=== PATIENT | male | born 1975 ===

== ENCOUNTER 2022-02-19 13:14 | Emergency (ER) | payer OTHER, SELFPAY ==
--- NOTE | ~2022-02-19 | CT_ITS ---
EXAMINATION: CT BRAIN AND CT FACIAL BONES WITHOUT CONTRAST. CLINICAL INFORMATION: Head injury at work with LOC. COMPARISON: None TECHNIQUE: 5 mm thin axial and reformatted 2 mm thin sagittal and coronal images of brain were obtained without contrast. Subsequently axial 3 mm thin and reformatted 2 mm thin sagittal and coronal images of facial bones were obtained. DLP [id number]. FINDINGS: Brain: There is no acute intra-axial, extra-axial bleed, masses or midline shift. There is no acute infarct in evolution. The lateral ventricles are symmetrical in size and configuration without enlargement. The modi to white matter difference is maintained. There is no acute infarct in evolution. Bone windows reveal no calvarial abnormality. There is no scalp soft tissue abnormality. There is mild mucoperiosteal thickening bilateral maxillary, ethmoid, frontal and sphenoid sinuses. Facial bones: There is no maxillofacial or mandibular fracture. The bony sinus martinez, lamina papyracea and the cribriform plate is intact. There is bilateral nasal bone fractures with mild displacement of the right nasal bone. However there is no's soft tissue swelling. Question acute versus old fractures. The nasal pharyngeal and nasal cavity airway is patent. There is mild deviation nasal septum to the left with symmetrical turbinates. The bony orbits, optic globe, optic nerve and the periorbital soft tissues are normal. Bilateral TM joints are symmetric and normal. The oropharynx and the nasopharynx is unremarkable. Visualized bilateral parotid, submandibular glands are symmetrical and normal. CT/CT facial bones wo con IMPRESSION: No acute intracranial process seen. Bilateral nasal bone fractures. No associated soft tissue swelling. Versus old. Correlate with clinical exam. Chronic pansinusitis with deviated nasal septum to the left.
[2022-02-19 14:06] VITALS: BP 142/88; PULSE 70; RESP 18; TEMP 36.4; O2SAT 98; BMI 32.7
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
[2022-02-19] MEDS: Acetaminophen 325 MG TABLET 650 MG PO (15:09)
== END 2022-02-19 16:42 | disposition home or self-care (01) ==
PROVIDERS: Emergency Provider Emergency Medicine; PCP Hospitalist
DX: S02.2XXA Fracture of nasal bones, initial encounter for closed fracture (principal); S09.90XA Unspecified injury of head, initial encounter; Y04.8XXA Assault by other bodily force, initial encounter; Y93.9 Activity, unspecified; Y92.9 Unspecified place or not applicable; Y99.0 Civilian activity done for income or pay; Z79.899 Other long term (current) drug therapy
CPT/HCPCS: 70450; 70486; 99284

== ENCOUNTER → 2023-07-04 09:45 | Outpatient (BNVA) | payer OTHER, SELFPAY | PROVIDERS: PCP Hospitalist; Visit Provider Physician Assistant Medical | DX: M54.50 Low back pain, unspecified (principal) | CPT/HCPCS: 99203 ==

== ENCOUNTER → 2023-07-15 11:13 | Outpatient (BNVA) | payer OTHER, SELFPAY | PROVIDERS: PCP Hospitalist; Visit Provider Physician Assistant Medical | DX: M54.50 Low back pain, unspecified (principal) | CPT/HCPCS: 99213 ==

== ENCOUNTER 2024-09-04 02:01 | Day surgery (SDC) | payer OTHER, SELFPAY ==
[2024-09-04] VITALS (10 sets, daily range): BP systolic 122–184; BP diastolic 66–97; PULSE 77–97; RESP 14–18; TEMP 36.4–37.3; O2SAT 2–99; BMI 32.1
--- NOTE | ~2024-09-04 | CT_ITS ---
EXAMINATION: CT ABDOMEN AND PELVIS WITH CONTRAST CLINICAL INFORMATION: Right lower quadrant pain. COMPARISON: None available. TECHNIQUE: Multidetector volumetric images were obtained from the superior aspect of the liver through the pubic symphysis following administration 85 mL of Omnipaque 350 intravenous contrast. Sagittal and coronal reformatted images were obtained on the technologist's workstation. Oral contrast: No This CT examination was performed using dose optimization techniques as appropriate, variously including the following: *Automated exposure control *Adjustment of mA and/or kV according to patient size (this includes techniques or standardized protocols for targeted exams where dose is matched to indication/reason for exam; i.e. extremities or head) *Use of iterative reconstruction technique DLP: 817 mGy-cm FINDINGS: LUNG BASES: The visualized lung bases are unremarkable. LIVER, GALLBLADDER, AND BILIARY TREE: The liver is normal in size, shape, and attenuation. No focal hepatic lesion or biliary ductal dilatation is present. The gallbladder is unremarkable with no evidence of radiopaque gallstones, gallbladder wall thickening, or obvious pericholecystic inflammatory changes. PANCREAS: Unremarkable. SPLEEN: Unremarkable. ADRENAL GLANDS: Unremarkable. KIDNEYS AND URETERS: The kidneys are normal in size, shape, and attenuation. No hydronephrosis, hydroureter, or calculi seen. No perinephric stranding. BLADDER: Unremarkable. GASTROINTESTINAL TRACT: The appendix is abnormally dilated to a maximum outer wall diameter of 15 mm. Reticulation of the mesoappendix fat is present. A rounded 6 mm density is present at the base of the appendix and may represent an appendicolith. Trace adjacent free peritoneal fluid which is likely reactive is noted adjacent to the appendix. No free intraperitoneal gas identified. Normal appearance of the sigmoid mesentery and small bowel mesentery. Normal appearance of the stomach and duodenum. ABDOMINAL WALL: No significant hernia is appreciated. LYMPH NODES: Normal. VASCULAR: Mild scattered calcific atherosclerosis. PELVIC VISCERA: Normal appearance of the prostate. OSSEOUS STRUCTURES: No suspicious skeletal lesions. CT/CT abdomen pelvis w IV con IMPRESSION: Acute uncomplicated appendicitis. The appendix is abnormally dilated to 15 mm in diameter. Moderate adjacent periappendiceal inflammatory changes are present. No evidence of appendiceal perforation. A 6 mm appendicolith is present at the base of the appendix. Normal appearance of the terminal ileum. This critical result was discussed with Rosie Khan MD by telephone at 09/04/2024 4:09 AM EDT and it was ascertained that the content and urgency of the report was understood at the time of direct communication. Electronically signed by: Jorge Lewis MD 09/04/2024 04:10 AM EDT
[2024-09-04 02:18] LABS: MANUAL DIFF FLAG NO
[2024-09-04 02:20] LABS: Basophils Percent Auto 0.4 % (0-2); Eosinophils Absolute Auto 0.3 X10*3/uL (0.0-0.4); Eosinophils Percent Auto 2.6 % (0-4); Hematocrit 43.8 % (42.0-52.0); Hemoglobin 15.1 g/dl (14.0-18.0); Imm Gran Abs Auto 0.03 X10*3/uL (0.00-0.03); Imm Gran Pct Auto 0.3 % (0.0-0.4); Lymphocytes Absolute Auto 1.9 X10*3/uL (1.2-4.9); Lymphocytes Percent Auto 17.8 % (20-40); Mean Corpuscular HGB Conc 34.5 g/dl (31.0-36.0); Mean Corpuscular Hemoglobin 30.5 pg (27.0-33.0); Mean Corpuscular Volume 88.5 fL (80.0-98.0); Mean Platelet Volume 9.6 fL (9.4-12.4); Neutrophils Absolute Auto 7.6 x10*3/uL (2.0-8.3); Neutrophils Percent Auto 69.9 % (45-73); Platelet Count 177 X10*3/uL (160-400); Red Blood Count 4.95 X10*6/uL (4.60-5.80); Red Cell Distribution Width 12.6 % (11.0-16.0); White Blood Count 10.8 X10*3/uL (4.8-10.8)
[2024-09-04 02:32] LABS: Alanine Aminotransferase 38 U/L (0-40); Albumin Level 4.4 g/dL (3.5-5.0); Alkaline Phosphatase 56 U/L (39-117); Anion Gap 13 (12-20); Aspartate Amino Transferase 34 U/L (5-37); Bilirubin Total 0.4 mg/dL (0.0-1.0); Blood Urea Nitrogen 11 mg/dL (9-16); Calcium 9.4 mg/dL (8.4-10.2); Carbon Dioxide 25 mmol/L (22-29); Chloride 107 mmol/L (96-108); Creatinine Clr Calc Pharmacy 89.3; Estimated Glomerular Filt Rate 58; Glucose Random 113 mg/dL (60-115); Lipase 18 U/L (8-78); Potassium 3.9 mmol/L (3.3-5.1); Sodium 141 mmol/L (135-145); Total Protein 7.5 g/dL (6.5-8.0)
--- OUTSIDE RECORDS SUMMARY | 2024-09-04 02:55 | XMS_ITS | Continuity of Care Document ---
Author Organization [facility] Kenneth Shad Address [address] [place] [address]- Care Team Providers Care Driver License Agent Name Role Phone Fadia Tay Primary Care Physician [phone] [place] [facility] [place] 10[place]/23 [facility] Adult [address] [place] [address]- Attending Physician: Fadia Tay Allergies, Adverse Reactions, Alerts No Known Allergies Immunizations Given and Recorded Vaccine Date Status Refusal Reason SARS-CoV-2 (COVID-19) mRNA BNT-162b2 vac 11/11/21 Recorded SARS-CoV-2 (COVID-19) mRNA BNT-162b2 vac 12/03/20 Recorded SARS-CoV-2 (COVID-19) mRNA BNT-162b2 vac 11/12/20 Recorded influenza virus vaccine, inactivated 1 09/07/14 Gi shagufta influenza virus vaccine, inactivated 2 12/03/13 Gi shagufta FluLaval (oldterm) 3 10/22/11 Given Tet/diphth/pertussis, acel (oldterm) 4 10/22/11 Gi shagufta 1Admin Note: Work 2Admin Note: 08-19 WORK 3Admin Note: - AT WORK 4Admin Note: 2009 AT WORK CONNECTION Medications esomeprazole 20 mg oral powder for reconstitution, delayed release 1 each = 20 mg, By Mouth, Daily, dissolve in water before taking, # 30 each, 5 Refills, Maintenance, 05/04/22 15:04:00 EDT, Powder, [id number], Partial fill upon patient request if the prescription is for a schedule II opioid drug., 185.42, cm... Start Date: 05/04/22 Status: Ordered Paxlovid 150 mg-100 mg oral tablet See Instructions, follow package instructions, # 30 tablet, 0 Refills, Maintenance, 09/15/22 13:02:00 EST, [id number], not renally impaired, follow package instructions, 185.42, cm, 05/04/22 14:36:00 EDT, Height, 113.3, kg, 03/19/21 10:56:00 E... Start Date: 09/15/22 Status: Ordered Problem List Condition Confirmation Course Effective Dates Status Health St atus Informant Allergic rhinitis Confirmed Active Arthritis of knee - right Confirmed Active Esophageal reflux (GERD) Confirmed 04/13/11 Active Nasal bone fracture Confirmed Active Obese class I Confirmed Active Plantar fasciitis of right foot Confirmed Active Social History Social History Type Response Smoking Status Former smoker; Other : quit 8 years ago; entered on: 03/01/16 Sex Patient Care team information Care Team Personnel Name: Fadia Tay Position: [facility] PCO Associate Professional Member Role: PCP Address: Address: [address] [place] [id number] Care Team Related Persons Name: ИРИНА OSBORNE Address: home [address] [address] Name: NIRU OSBORNE Address: home [address] [place] [address]
--- OUTSIDE RECORDS SUMMARY | 2024-09-04 02:55 | XMS_ITS | Continuity of Care Document ---
Author Organization [facility] Shad lt Address [address] [place] [address]- Care Team Providers Care Retail Leasing Agent Name Role Phone Dione PERDOMO, Poli Lewis Primary Care Physician [phone] [place] [facility] [place]/12/21 - 01/19/21 [facility] Adult [address] [place] [address]- Attending Physician: Domeinco Nicole MD Allergies, Adverse Reactions, Alerts Substance Reaction Severity Status NKA Active Immunizations Given and Recorded Vaccine Date Status Refusal Reason influenza virus vaccine, inactivated 1 09/07/14 Gi shagufta influenza virus vaccine, inactivated 2 12/03/13 Gi shagufta FluLaval (oldterm) 3 10/22/11 Given Tet/diphth/pertussis, acel (oldterm) 4 10/22/11 Gi shagufta 1Admin Note: Work 2Admin Note: 08-19 WORK 3Admin Note: 07-18 AT WORK 4Admin Note: 2008 AT WORK CONNECTION Medications NexIUM 24HR 20 mg oral delayed release capsule 1 capsule = 20 mg, By Mouth, 2 times a day, 30 min before a meal, # 60 capsule, 11 Refills, Maintenance, 07/03/20 10:57:00 EDT, [id number], brand name nexium 24 hr as per insurance, 185.7, cm, 07/03/20 10:10:00 EDT, Height Start Date: 07/03/20 Status: Ordered NuLYTELY with Flavor Packs oral powder for reconstitution 240 mL, By Mouth, Every 10 minutes, # 4,000 mL, 0 Refills, Maintenance, 07/03/20 10:56:00 EDT, REC Powder, [id number], 240 mL By Mouth Every 10 minutes, 185.7, cm, 07/03/20 10:10:00 EDT, Height Start Date: 07/03/20 Status: Ordered omeprazole 40 mg oral enteric coated capsule 1 capsule = 40 mg, By Mouth, 2 times a day, before a meal, # 60 capsule, 11 Refills, Maintenance, 04/17/20 10:13:00 EDT, EC Capsule, [facility]/pharmacy #[id number], 185.7, cm, 04/16/20 16:28:00 EDT, Height Start Date: 04/17/20 Status: Ordered Pepcid Complete By Mouth, Every 12 hours, 0 Refills, Maintenance, 01/14/21 11:13:00 EST, Partial fill upon patient request if the prescription is for a schedule II opioid drug. Start Date: 01/14/21 Status: Ordered Problem List Condition Effective Dates Status Health Status Inform ant Allergic rhinitis(Confirmed) Active Arthritis of knee - right(Confirmed) Active Esophageal reflux (GERD)(Confirmed) 04/13/11 Active Pain of right arm(Confirmed) Active Plantar fasciitis of right foot(Confirmed) Active Vital Signs Most recent to oldest [Reference Range]: 1 Height 185.7 cm (01/12/21 12:13 PM) Weight 108.9 kg (01/12/21 12:13 PM) Body Mass Index [18.5-24.99] 31.58 *>HHI* (01/12/21 12:13 PM) Weight Obtained Via Standing scale (01/12/21 12:13 PM) Social History Social History Type Response Smoking Status Former smoker; Other : quit 8 years ago; entered on: 03/01/16 Sex
--- OUTSIDE RECORDS SUMMARY | 2024-09-04 02:55 | XMS_ITS | Continuity of Care Document ---
Author Organization [facility] Shad lt Address [address] [place] [address]- Care Team Providers Care Counter Pocket Sewer Name Role Phone Poli Parham MD Primary Care Physician [phone] Encounter [facility] Date(s): 01/16/21 - 02/15/21 [facility] Adult [address] [place] [address]- Allergies, Adverse Reactions, Alerts Substance Reaction Severity [...] 4Admin Note: 2009 AT WORK CONNECTION Medications fluticasone 50 mcg/inh nasal spray 1 sprays, Nares, Both, Daily, # 1 each, 3 Refills, Maintenance, 02/10/21 14:03:00 EDT, [id number], 1 sprays Nares, Both Daily, 185.7, cm, 01/14/21 11:11:00 EST, Height Start Date: 02/10/21 Status: Ordered NexIUM 24HR 20 mg oral delayed release [...] Refills, Maintenance, 07/03/20 10:56:00 EDT, REC Powder, [facility]/pharmacy #[id number], 240 mL By Mouth Every 10 [...] Active Plantar fasciitis of right foot(Confirmed) Active Social History Social History Type Response Smoking Status Former smoker; Other : quit 8 years ago; entered on: 03/01/16 Sex
--- OUTSIDE RECORDS SUMMARY | 2024-09-04 02:55 | XMS_ITS | Continuity of Care Document ---
Author Organization [facility] Kenneth Shad lt Address [address] [place] [address]- Care Team Providers Care Split And Drum Room Supervisor Name Role Phone Fadia Tay Primary Care Physician [phone] En[place] [facility] [place] Date(s): 02/01/24 - 02/08/24 [facility] Adult [address] [place] [address]- Encounter Diagnosis URI (upper respiratory infection)(Discharge Diagnosis) - 02/01/24 Attending Physician: Domenico Nicole MD Referring Physician: Fadia Tay Allergies, Adverse Reactions, Alerts [...] 4Admin Note: 2008 AT WORK CONNECTION Medications esomeprazole 20 mg oral powder for reconstitution, delayed release 1 each = 20 mg, By Mouth, Daily, dissolve in water before taking, # 30 each, 5 Refills, Maintenance, 05/04/22 15:04:00 EDT, Powder, [id number], Partial fill upon patient request if the prescription is for a schedule II opioid drug., 185.42, cm... Start Date: 05/04/22 Status: Ordered predniSONE 20 mg oral tablet 2 tablet = 40 mg, By Mouth, Daily, # 6 tablet, 0 Refills, Maintenance, 02/01/24 11:07:00 EDT, Tablet, [id number], Partial fill upon patient request if the prescription is for a schedule II opioid drug., 185.42, cm, 02/01/24 10:52:00 EDT, Height Start Date: 02/01/24 Status: Ordered Problem List Condition Confirmation Course Effective Dates Status Health St atus Informant Allergic rhinitis Confirmed Active Arthritis of knee - right Confirmed Active Esophageal reflux (GERD) Confirmed 04/13/11 Active Nasal bone fracture Confirmed Active Obese class I Confirmed Active Plantar fasciitis of right foot Confirmed Active Diagnosis Diagnosis Type Effective Dates Health Status Clinical Service Informant URI (upper respiratory infection) Discharge Diagnosis 02/01/24 Vital Signs Most recent to oldest [Reference Range]: 1 Height 185.42 cm (02/01/24 10:52 AM) Weight 114.3 kg (02/01/24 10:52 AM) Oxygen Saturation [94-100 %] 96 % (02/01/24 10:52 AM) Pulse Rate [55-90 bpm] 97 bpm *H* (02/01/24 10:52 AM) Body Mass Index [18.5-24.99 kg/m2] 33.25 kg/m2 *>HHI* (02/01/24 10:52 AM) Blood Pressure [90-138/55-84 mm Hg] 123/ 87mm Hg (02/01/24 10:52 AM) Mode of Delivery (Oxygen) Room air (02/01/24 10:52 AM) Blood pressure sites Arm, left (02/01/24 10:52 AM) Weight Obtained Via Standing scale (02/01/24 10:52 AM) Social History Social History Type Response Smoking Status Former smoker; Other : quit 8 years ago; entered on: 03/01/16 Sex Patient Care team information Care Team Personnel Name: Fadia Tay Position: S PCO Associate Professional Member Role: PCP Address: Address: [address] [place] [id number] Care Team Related Persons Name: ИРИНА OSBORNE Address: home [address] [place] [address] Name: NIRU OSBORNE Address: home [address] [place] [address]
--- OUTSIDE RECORDS SUMMARY | 2024-09-04 02:55 | XMS_ITS | Continuity of Care Document ---
Author Organization [facility] Kenneth Shad Address [address] [place] [address]- Care Team Providers Care Road Tester Name Role Phone Fadia Tay Primary Care Physician [phone] [place] [facility] [place] 05[place]/22 [facility] Adult [address] [place] [address]- Allergies, Adverse Reactions, Alerts No Known Allergies [...] 4Admin Note: 2009 AT WORK CONNECTION Medications acetaminophen-codeine 300 mg-30 mg oral tablet 1, tablet, By Mouth, Every 6 hours, # 15 tablet, Refills 0, Tot. Refills 0, Acute, 03/11/23 14:00:00 EDT, 03/04/22 13:37:00 EDT, Route to Pharmacy Electronically, [facility]/pharmacy #[id number], Partial fill upon patient request if the prescription is for a sched... Start Date: 03/04/22 Stop Date: 03/11/23 Status: Ordered esomeprazole 20 mg oral powder for reconstitution, delayed release 1 each = 20 mg, By Mouth, Daily, dissolve in water before taking, # 30 each, 5 Refills, Maintenance, 05/04/22 15:04:00 EDT, Powder, [facility]/pharmacy #[id number], Partial fill upon patient request if the prescription is for a schedule II opioid drug., 185.42, cm... Start Date: 05/04/22 Status: Ordered fluticasone 50 mcg/inh nasal spray See Instructions, USE 1 SPRAY IN BOTH NOSTRILS ONCE DAILY, # 48 mL, 0 Refills, Maintenance, [id number], 90, USE 1 SPRAY IN BOTH NOSTRILS ONCE DAILY, 185.42, cm, 03/19/21 10:56:00 EDT, Height, 113.3, kg, 03/19/21 10:56:00 EDT, Dry Weight Start Date: 05/04/21 Status: Ordered omeprazole 40 mg oral enteric coated capsule 1 capsule = 40 mg, By Mouth, 2 times a day, before a meal, # 60 capsule, 11 Refills, Maintenance, 04/17/20 10:13:00 EDT, EC Capsule, [facility]/pharmacy #[id number], 185.7, cm, 04/16/20 16:28:00 EDT, Height Start Date: 04/17/20 Status: Ordered Pepcid Complete By Mouth, Every 12 hours, 0 Refills, Maintenance, 01/14/21 11:13:00 EST, Partial fill upon patient request if the prescription is for a schedule II opioid drug. Start Date: 01/14/21 Status: Ordered ZyrTEC 10 mg oral tablet 1 tablet = 10 mg, By Mouth, Daily, 0 Refills, Maintenance, 03/19/21 10:54:00 EDT, Partial fill uponpatient request if the prescription is for a schedule II opioid drug. Start Date: 03/19/21 Status: Ordered Problem List Condition Effective Dates Status Health Status Inform ant Allergic rhinitis(Confirmed) Active Arthritis of knee - right(Confirmed) Active Esophageal reflux (GERD)(Confirmed) 04/13/11 Active Nasal bone fracture(Confirmed) Active Obese class I(Confirmed) Active Pain of right arm(Confirmed) Active Plantar fasciitis of right foot(Confirmed) Active Social History Social History Type Response Smoking Status Former smoker; Other : quit 8 years ago; entered on: 03/01/16 Sex
--- OUTSIDE RECORDS SUMMARY | 2024-09-04 02:55 | XMS_ITS | Continuity of Care Document ---
Author Organization [facility] Address [address] [place] [address]- Care Team Providers Care Filler Machine Operator Name Role Phone Poli Parham MD Primary Care Physician Encounter [facility] [place] Date(s): 06/30/20 - 08/28/20 [facility] [address] [place] [address] Attending Physician: Sally Cline Admitting Physician: Sally Cline Referring Physician: Poli Parham MD Allergies, Adverse Reactions, Alerts Substance Reaction Severity Status NKA Active Immunizations Given and Recorded Vaccine Date Status Refusal Reason influenza virus vaccine, inactivated 1 09/07/14 Gi shagufta influenza virus vaccine, inactivated 2 12/03/13 Gi shagufta FluLaval (oldterm) 3 10/22/11 Given Tet/diphth/pertussis, acel (oldterm) 4 10/22/11 Gi shagufta 1Admin Note: Work 2Admin Note: 08-19 WORK 3Admin Note: 07-18 AT WORK 4Admin Note: 2009 AT WORK CONNECTION Medications arginine 500 mg oral capsule 1 capsule = 500 mg, By Mouth, 2 times a day, # 100 capsule, 0 Refills, Maintenance, 06/23/20 10:16:00 EDT, Capsule Start Date: 06/23/20 Status: Ordered Collagen 0 Refills, Maintenance, 06/23/20 10:16:00 EDT Start Date: 06/23/20 Status: Ordered fluticasone 50 mcg/inh nasal spray 1 sprays, Nares, Both, Daily, # 1 each, 3 Refills, Maintenance, 03/09/18 15:26:34 EDT, 1 sprays Nares, Both Daily Start Date: 03/09/18 Status: Ordered NexIUM 24HR 20 mg oral [...] Refills, Maintenance, 04/17/20 10:13:00 EDT, EC Capsule, [id number], 185.7, cm, 04/16/20 16:28:00 EDT, Height Start Date: 04/17/20 Status: Ordered Problem List Condition Effective Dates [...]
--- OUTSIDE RECORDS SUMMARY | 2024-09-04 02:55 | XMS_ITS | Continuity of Care Document ---
Author Organization [facility] Kenneth Shad lt Address [address] [place] [address]- Care Team Providers Care Shaper Operator Name Role Phone Poli Parham MD Primary Care Physician [place] [facility] [place] 04/17/20 - 04/24/20 [facility] [place] [address] [place] [address]- [facility] Encounter Diagnosis Esophageal reflux (GERD)(Discharge Diagnosis) - 04/21/20 Neuropathic pain(Discharge Diagnosis) - 04/21/20 Attending Physician: Poli Parham MD Allergies, Adverse Reactions, [...] 4Admin Note: 2008 AT WORK CONNECTION Medications famotidine 40 mg oral tablet 1 tablet = 40 mg, By Mouth, Daily, # 30 tablet, 1 Refills, Maintenance, 11/23/19 10:53:00 EST, Tablet, [facility]/pharmacy #[id number], 185.7, cm, 10/30/19 11:15:00 EST, Height Start Date: 11/23/19 Status: Ordered fluticasone 50 mcg/inh nasal spray 1 sprays, Nares, Both, Daily, # 1 each, 3 Refills, Maintenance, 05/03/18 15:26:34 EDT, 1 sprays Nares, Both Daily Start Date: 03/09/18 Status: Ordered NexIUM OTC = 20 mg, By Mouth, Daily, 0 Refills, Maintenance, 10/30/19 11:20:00 EST Start Date: 10/30/19 Status: Ordered omeprazole 40 mg oral enteric coated capsule 1 capsule = 40 mg, By Mouth, 2 times a day, before a meal, # 60 capsule, 11 Refills, Maintenance, 04/17/20 10:13:00 EDT, EC Capsule, [facility]/pharmacy #[id number], 185.7, cm, 04/16/20 16:28:00 EDT, Height Start Date: 04/17/20 Status: Ordered Problem List Condition Effective Dates Status Health Status Inform ant Allergic rhinitis(Confirmed) Active Arthritis of knee - right(Confirmed) Active Esophageal reflux (GERD)(Confirmed) 04/13/11 Active Pain of right arm(Confirmed) Active Plantar fasciitis of right foot(Confirmed) Active Diagnosis Diagnosis Type Effective Dates Health Status Clinical Service Informant Esophageal reflux (GERD) Discharge Diagnosis 04/21/20 Neuropathic pain Discharge Diagnosis 04/21/20 Vital Signs Most recent to oldest [Reference Range]: 1 Height 185.7 cm (04/16/20 4:28 PM) Social History Social History Type Response Smoking Status Former smoker; Other : quit 8 years ago; entered on: 03/01/16 Sex
--- OUTSIDE RECORDS SUMMARY | 2024-09-04 02:55 | XMS_ITS | Continuity of Care Document ---
Author Organization [facility] Address [address] [place] [address]- Care Team Providers Care Transmitter Chief Name Role Phone Fadia Tay Primary Care Physician Encounter [facility] [place] Date(s): 01/25/24 - 02/24/24 [facility] [address] [place] [address]- [place] Allergies, Adverse Reactions, Alerts No Known Allergies Immunizations Given and Recorded Vaccine Date Status Refusal Reason SARS-CoV-2 (COVID-19) mRNA BNT-162b2 vac 11/11/21 Recorded SARS-CoV-2 (COVID-19) mRNA BNT-162b2 vac 12/03/20 Recorded SARS-CoV-2 (COVID-19) mRNA BNT-162b2 vac 11/12/20 Recorded influenza virus vaccine, inactivated 1 09/07/14 Gi shagufta influenza virus vaccine, inactivated 2 12/03/13 Gi shaugfta FluLaval (oldterm) 3 10/22/11 Given Tet/diphth/pertussis, acel [...] Refills, Maintenance, 05/04/22 15:04:00 EDT, Powder, [id number], Partial fill upon patient request if the [...] Care Team Personnel Name: Fadia Tay Position: [facility] PCO Associate Professional Member Role: PCP Address: Address: [address] [place] [address]- Care Team Related Persons Name: ИРИНА OSBORNE Address: home [address] [place] [address] Name: NIRU OSBORNE Address: home [address] [place] [address]
--- OUTSIDE RECORDS SUMMARY | 2024-09-04 02:55 | XMS_ITS | Continuity of Care Document ---
Author Organization [facility] Shad lt Address [address] [place] [address]- Care Team Providers Care Material Control Analyst Name Role Phone Fadia Tay Primary Care Physician Encounter [facility] [place] Date(s): 02/03/24 - 03/04/24 [facility] [place] Adult [address] [place] [address]- Allergies, Adverse Reactions, Alerts No Known Allergies [...] 3Admin Note: - AT WORK 4Admin Note: 2008 AT WORK CONNECTION Medications esomeprazole 20 mg oral powder for reconstitution, delayed release 1 each = 20 mg, By Mouth, Daily, dissolve in water before taking, # 30 each, 5 Refills, Maintenance, 05/04/22 15:04:00 EDT, Powder, [id number], Partial fill upon patient request if the prescription is for a schedule II opioid drug., 185.42, cm... Start Date: 05/04/22 Status: Ordered predniSONE 20 mg oral tablet 2 tablet = 40 mg, By Mouth, Daily, # 6 tablet, 0 Refills, Maintenance, 02/01/24 11:07:00 EDT, Tablet, [facility]/pharmacy #[id number], Partial fill upon patient request if [...] Care Team Personnel Name: Fadia Tay Position: [facility] PCO Associate Professional Member Role: PCP Address: Address: [address] [place] [address]- Care Team Related Persons Name: ИРИНА OSBORNE Address: home [address] [address] Name: NIRU OSBORNE Address: home [address] [place] [address]
--- OUTSIDE RECORDS SUMMARY | 2024-09-04 02:55 | XMS_ITS | Continuity of Care Document ---
Author Organization [facility] Shad lt Address [address] [place] [address]- Care Team Providers Care Joint Filler Name Role Phone Fadia Tay Primary Care Physician Encounter [facility] [place] Date(s): 02/25/22 - 03/04/22 [facility] Adult [address] [place] [address]- Encounter Diagnosis Nasal bone fracture(Discharge Diagnosis) - 02/25/22 Concussion(Discharge Diagnosis) - 02/25/22 Attending Physician: Radha Kamara NP Referring Physician: Shoaib PERDOMO, Eros Loyola Allergies, Adverse Reactions, Alerts No Known Allergies [...] 4Admin Note: 2008 AT WORK CONNECTION Medications acetaminophen-codeine 300 mg-30 mg oral tablet 1, tablet, By Mouth, Every 6 hours, # 15 tablet, Refills 0, Tot. Refills 0, Acute, 03/11/23 14:00:00 EDT, 03/04/22 13:37:00 EDT, Route to Pharmacy Electronically, [facility]/pharmacy #[id number], Partial fill upon patient request if the prescription is for a sched... Start Date: 03/04/22 Stop Date: 03/11/23 Status: Ordered fluticasone 50 mcg/inh nasal spray See Instructions, USE 1 SPRAY IN BOTH NOSTRILS ONCE DAILY, # 48 mL, 0 Refills, Maintenance, [id number], 90, USE 1 SPRAY IN BOTH NOSTRILS ONCE DAILY, 185.42, cm, 03/19/21 10:56:00 EDT, Height, 113.3, kg, 03/19/21 10:56:00 EDT, Dry Weight Start Date: 05/04/21 Status: Ordered NexIUM 24HR 20 mg oral delayed release capsule 1 capsule = 20 mg, By Mouth, 2 times a day, 30 min before a meal, # 60 capsule, 11 Refills, Maintenance, 07/03/20 10:57:00 EDT, [facility]/pharmacy #[id number], brand name nexium 24 hr as per insurance, 185.7, cm, 07/03/20 10:10:00 EDT, Height Start Date: 07/03/20 Status: Ordered omeprazole 40 mg oral enteric coated capsule 1 capsule = 40 mg, By Mouth, 2 times a day, before a meal, # 60 capsule, 11 Refills, Maintenance, 04/17/20 10:13:00 EDT, EC Capsule, [facility]/pharmacy #[id number], 185.7, cm, 04/16/20 16:28:00 EDT, Height [...] Effective Dates Health Status Clinical Service Informant Nasal bone fracture Discharge Diagnosis 02/25/22 Concussion Discharge Diagnosis 02/25/22 Vital Signs Most recent to oldest [Reference Range]: 1 Height 185.42 cm (02/25/22 8:52 AM) Social History Social History Type Response Smoking Status Former smoker; Other : quit 8 years ago; entered on: 03/01/16 Sex
--- OUTSIDE RECORDS SUMMARY | 2024-09-04 02:55 | XMS_ITS | Continuity of Care Document ---
Author Organization [facility] Shad lt Address [address] [place] [address]- Care Team Providers Care Drain Cleaner Plumber Name Role Phone Poli Parham MD Primary Care Physician En[place] [facility] [place] Date(s): 01/14/21 - 02/13/21 [facility] Adult [address] [place] [address]- Attending Physician: Admtr, Ar8 Admitting Physician: Admtr, Ar8 Referring Physician: Admtr, Ar8 Allergies, Adverse Reactions, Alerts Substance Reaction Severity [...] 4Admin Note: 2008 AT WORK CONNECTION Medications fluticasone 50 mcg/inh [...] Refills, Maintenance, 07/03/20 10:56:00 EDT, REC Powder, [facility]/pharmacy #[id number], 240 mL By Mouth Every 10 minutes, 185.7, cm, 07/03/20 10:10:00 EDT, Height Start Date: 07/03/20 Status: Ordered omeprazole 40 mg oral enteric coated capsule 1 capsule = 40 mg, By Mouth, 2 times a day, before a meal, # 60 capsule, 11 Refills, Maintenance, 04/17/20 10:13:00 EDT, EC Capsule, [facility]/pharmacy #[id number], 185.7, cm, 04/16/20 16:28:00 EDT, Height [...]
--- OUTSIDE RECORDS SUMMARY | 2024-09-04 02:56 | XMS_ITS | Continuity of Care Document ---
Author Organization [facility] Shad lt Address [address] [place] [address]- Care Team Providers Care Associate Pathologist Name Role Phone Fadia Tay Primary Care Physician [phone] Encounter [facility] Date(s): 09/15/22 - 10/15/22 [facility] Adult [address] [place] [address]- Allergies, Adverse Reactions, Alerts No Known Allergies [...] Refills, Maintenance, 05/04/22 15:04:00 EDT, Powder, [id number], Partial fill upon patient request if the prescription is for a schedule II opioid drug., 185.42, cm... Start Date: 05/04/22 Status: Ordered Paxlovid 150 mg-100 mg oral tablet See Instructions, follow package instructions, # 30 tablet, 0 Refills, Maintenance, 09/15/22 13:02:00 EST, [facility]/pharmacy #[id number], not renally impaired, follow package [...] Care Team Personnel Name: Fadia Tay Position: [facility] PCO Associate Professional Member Role: PCP Address: Address: [address] [place] [id number] Care Team Related Persons Name: ИРИНА OSBORNE Address: home [address] [address] Name: NIRU OSBORNE Address: home [address] [place] [address]
--- OUTSIDE RECORDS SUMMARY | 2024-09-04 02:56 | XMS_ITS | Continuity of Care Document ---
Author Organization [facility] Shad lt Address [address] [place] [address]- Care Team Providers Care Green Belt Name Role Phone Poli Parham MD Primary Care Physician Encounter [facility] [place] Date(s): 02/10/21 - 03/12/21 [facility] Adult [address] [place] [address]- Allergies, Adverse Reactions, Alerts Substance Reaction Severity [...] Refills, Maintenance, 07/03/20 10:56:00 EDT, REC Powder, [facility]/pharmacy #[id number], 240 mL By Mouth Every 10 minutes, 185.7, cm, 07/03/20 10:10:00 EDT, Height Start Date: 07/03/20 Status: Ordered omeprazole 40 mg oral enteric coated capsule 1 capsule = 40 mg, By Mouth, 2 times a day, before a meal, # 60 capsule, 11 Refills, Maintenance, 04/17/20 10:13:00 EDT, EC Capsule, [facility]/pharmacy #[id number], 185.7, cm, 04/16/20 16:28:00 EDT, [...]
--- OUTSIDE RECORDS SUMMARY | 2024-09-04 02:56 | XMS_ITS | Continuity of Care Document ---
Author Organization [facility] Shad lt Address [address] [place] [address]- Care Team Providers Care Six Pack Loader Operator Name Role Phone Fadia Tay Primary Care Physician Encounter [id number] Date(s): 02/22/22 - 03/26/22 [facility] Adult [address] [place] [address]- Attending Physician: Fadia Tay Allergies, Adverse Reactions, [...] Gi shagufta 1Admin Note: Work 2Admin Note: - WORK 3Admin Note: -11 AT WORK 4Admin Note: 2008 AT WORK CONNECTION Medications acetaminophen-codeine 300 mg-30 mg oral tablet 1, tablet, By Mouth, Every 6 hours, # 15 tablet, Refills 0, Tot. Refills 0, Acute, 03/11/23 14:00:00 EDT, 03/04/22 13:37:00 EDT, Route to Pharmacy Electronically, [facility]/pharmacy #[id number], Partial fill upon patient request if the prescription is for a sched... Start Date: 03/04/22 Stop Date: 03/11/23 Status: Ordered fluticasone 50 mcg/inh nasal spray See Instructions, USE 1 SPRAY IN BOTH NOSTRILS ONCE DAILY, # 48 mL, 0 Refills, Maintenance, [facility]77[facility], 90, USE 1 SPRAY IN BOTH NOSTRILS ONCE DAILY, 185.42, cm, 03/19/21 10:56:00 EDT, Height, 113.3, kg, 03/19/21 10:56:00 EDT, Dry Weight Start Date: 05/04/21 Status: Ordered NexIUM 24HR 20 mg oral delayed release capsule 1 capsule = 20 mg, By Mouth, 2 times a day, 30 min before a meal, # 60 capsule, 11 Refills, Maintenance, 07/03/20 10:57:00 EDT, [facility]/pharmacy #[id number], brand name nexium 24 hr as per insurance, 185.7, cm, 07/03/20 10:10:00 EDT, Height Start Date: 07/03/20 Status: Ordered omeprazole 40 mg oral enteric coated capsule 1 capsule = 40 mg, By Mouth, 2 times a day, before a meal, # 60 capsule, 11 Refills, Maintenance, 04/17/20 10:13:00 EDT, EC Capsule, [facility]/pharmacy #[id number], 185.7, cm, 04/16/20 16:28:00 EDT, Height [...]
--- OUTSIDE RECORDS SUMMARY | 2024-09-04 02:56 | XMS_ITS | Continuity of Care Document ---
Author Organization [facility] Shad lt Address [address] [place] [address]- Care Team Providers Care Business Librarian Name Role Phone Fadia Tay Primary Care Physician Encounter [facility] Date(s): 09/15/22 - 10/15/22 [facility] Adult [address] [place] [address]- Attending Physician: Admtr, Ar8 Admitting Physician: Admtr, Pillo8 Referring Physician: Admtr, Ar8 Allergies, Adverse Reactions, Alerts No Known Allergies [...] Refills, Maintenance, 05/04/22 15:04:00 EDT, Powder, [id number], Partial fill upon patient request if the prescription is for a schedule II opioid drug., 185.42, cm... Start Date: 05/04/22 Status: Ordered Paxlovid 150 mg-100 mg oral tablet See Instructions, follow package instructions, # 30 tablet, 0 Refills, Maintenance, 09/15/22 13:02:00 EST, [id number], not renally impaired, follow package instructions, [...] Care Team Personnel Name: Fadia Tay Position: [facility] PCO Associate Professional Member Role: PCP Address: Address: [address] [place] [address]- Care Team Related Persons Name: ИРИНА OSBORNE Address: home [address] [address] Name: NIRU OSBORNE Address: home [address] [place] [address]
--- OUTSIDE RECORDS SUMMARY | 2024-09-04 02:56 | XMS_ITS | Continuity of Care Document ---
Author Organization [facility] Kenneth Shad lt Address [address] [place] [address]- Care Team Providers Care Thinner Sprayer Name Role Phone Poli Parham MD Primary Care Physician Encounter [facility] Date(s): 03/30/21 - 05/23/21 [facility] Adult [address] [place] [address]- Attending Physician: Poli Parham MD Allergies, Adverse Reactions, Alerts Substance Reaction Severity Status NKA Active Immunizations Given and Recorded Vaccine Date Status Refusal Reason SARS-CoV-2 (COVID-19) mRNA BNT-162b2 vac 12/03/20 Recorded [...] CONNECTION Medications fluticasone 50 mcg/inh nasal spray See Instructions, USE 1 SPRAY IN BOTH NOSTRILS ONCE DAILY, # 48 mL, 0 Refills, Maintenance, [facility], 90, USE 1 SPRAY IN BOTH NOSTRILS ONCE DAILY, 185.42, cm, 03/19/21 10:56:00 EDT, Height, 113.3, kg, 03/19/21 10:56:00 EDT, Dry Weight Start Date: 05/04/21 Status: Ordered NexIUM 24HR 20 mg oral delayed release capsule 1 capsule = 20 mg, By Mouth, 2 times a day, 30 min before a meal, # 60 capsule, 11 Refills, Maintenance, 07/03/20 10:57:00 EDT, [facility]/pharmacy #[id number], brand name nexium 24 hr as per insurance, 185.7, cm, 07/03/20 10:10:00 EDT, Height Start Date: 07/03/20 Status: Ordered omeprazole 40 mg oral enteric coated capsule 1 capsule = 40 mg, By Mouth, 2 times a day, before a meal, # 60 capsule, 11 Refills, Maintenance, 04/17/20 10:13:00 EDT, EC Capsule, [facility]/pharmacy #[id number], 185.7, cm, 04/16/20 16:28:00 EDT, [...]
--- OUTSIDE RECORDS SUMMARY | 2024-09-04 02:56 | XMS_ITS | Continuity of Care Document ---
Author Organization [facility] Gastroenter [facility] Address [address] [place] [address]- Care Team Providers Care Motor Inspection Mechanic Name Role Phone Fadia Tay Primary Care Physician Encounter [facility] [place] Date(s): 04/07/24 - 08/05/24 [facility] [address] [place] [address]- Attending Physician: Celeste Burleson MD Admitting Physician: Celeste Burleson MD Referring Physician: Celeste Burleson MD Allergies, Adverse Reactions, Alerts No Known Allergies [...] 4Admin Note: 2008 AT WORK CONNECTION Medications Centrum Adult MultiGummies Daily, 0 Refills, Maintenance, 07/17/24 10:28:00 EDT, Partial fill upon patient request if the prescription is for a schedule II opioid drug. Start Date: 07/17/24 Status: Ordered esomeprazole 20 mg oral powder [...] fluticasone 50 mcg/inh nasal spray See Instructions, SPRAY 1 SPRAY INTO BOTH NOSTRILS DAILY, SHAKE WELL BEFORE USING, # 48 mL, 1 Refills, Maintenance, 06/04/24 14:51:00 EDT, [facility], 90, SPRAY 1 SPRAY INTO BOTH NOSTRILS DAILY,SHAKE WELL BEFORE USING, 185.42, cm, 03/07/24 10:04... Start Date: 06/04/24 Status: Ordered [place] Essentials By Mouth, 2 times a day, 0 Refills, Maintenance, 07/17/24 10:28:00 EDT, Partial fill upon patient request if the prescription is for a schedule II opioid drug. Start Date: 07/17/24 Status: Ordered predniSONE 20 mg oral tablet [...] Care Team Personnel Name: Fadia Tay Position: [facility] PCO Associate Professional Member Role: PCP Address: Address: [address] [place] [address]- Care Team Related Persons Name: ИРИНА OSBORNE Address: home [address] [address] Name: NIRU OSBORNE Address: home [address] [place] [address]
--- OUTSIDE RECORDS SUMMARY | 2024-09-04 02:56 | XMS_ITS | Continuity of Care Document ---
Author Organization [facility] Shad Address [address] [place] [address]- Care Team Providers Care Bookkeeping Clerk Name Role Phone Fadia Tay Primary Care Physician Encounter [facility] [place] Date(s): 07/17/24 - 08/16/24 [facility] Adult [address] [place] [address]- Attending Physician: Mattie Davis Admitting Physician: AdmMattie bay Referring Physician: Admtr, Ar8 Allergies, Adverse Reactions, [...] Refills, Maintenance, 06/04/24 14:51:00 EDT, [facility], 90, SPRAY 1 SPRAY INTO BOTH NOSTRILS DAILY,SHAKE WELL BEFORE USING, 185.42, cm, 03/07/24 10:04... Start Date: 06/04/24 Status: Ordered [place] Essentials By Mouth, 2 times a day, [...] Care Team Personnel Name: Fadia Tay Position: [facility] PCO Associate Professional Member Role: PCP Address: Address: [address] [place] [address]- Care Team Related Persons Name: ИРИНА OSBORNE Address: home [address] [address] Name: NIRU OSBORNE Address: home [address] [place] [address]
--- OUTSIDE RECORDS SUMMARY | 2024-09-04 02:56 | XMS_ITS | Continuity of Care Document ---
Author Organization [facility] Kenneth Shad lt Address [address] [place] [address]- Care Team Providers Care Batch Analyst Name Role Phone Fadia Tay Primary Care Physician Encounter [facility] Date(s): 07/17/24 - 07/24/24 [facility], [place], operated by [facility] Adult [address] [place] [address]- Encounter Diagnosis Palpitations(Discharge Diagnosis) - 07/17/24 Shortness of breath(Discharge Diagnosis) - 07/17/24 Attending Physician: Fadia Tay Allergies, Adverse Reactions, [...] 5 Refills, Maintenance, 05/04/22 15:04:00 EDT, Powder, [facility]/pharmacy #[id number], Partial fill upon patient request if the prescription is for a schedule II opioid drug., 185.42, cm... Start Date: 05/04/22 Status: Ordered fluticasone 50 mcg/inh nasal spray See Instructions, SPRAY 1 SPRAY INTO BOTH NOSTRILS DAILY, SHAKE WELL BEFORE USING, # 48 mL, 1 Refills, Maintenance, 06/04/24 14:51:00 EDT, [id number], 90, SPRAY 1 SPRAY INTO BOTH NOSTRILS DAILY,SHAKE WELL BEFORE USING, 185.42, cm, 03/07/24 10:04... Start Date: 06/04/24 Status: Ordered Greer Essentials By Mouth, 2 times a day, 0 Refills, Maintenance, 07/17/24 10:28:00 EDT, Partial fill upon patient request if the prescription is for a schedule II opioid drug. Start Date: 07/17/24 Status: Ordered predniSONE 20 mg oral tablet 2 tablet = 40 mg, By Mouth, Daily, # 6 tablet, 0 Refills, Maintenance, 02/01/24 11:07:00 EDT, Tablet, [facility]/pharmacy #[id number], Partial fill upon patient request if [...] Effective Dates Health Status Clinical Service Informant Palpitations Discharge Diagnosis 07/17/24 Shortness of breath Discharge Diagnosis 07/17/24 Vital Signs Most recent to oldest [Reference Range]: 1 2 Height 185.42 cm (07/19/24 11:13 AM) 185.42 cm (07/17/24 10:24 AM) Weight 115.4 kg (07/19/24 11:13 AM) 115.4 kg (07/17/24 10:24 AM) Oxygen Saturation [94-100 %] 99 % (07/17/24 10:24 AM) Pulse Rate [55-90 bpm] 75 bpm (07/17/24 10:24 AM) Body Mass Index [18.5-24.99 kg/m2] 33.57 kg/m2 *>HHI* (07/17/24 10:24 AM) Blood Pressure [90-138/55-84 mm Hg] 118/ 71mm Hg (07/17/24 10:24 AM) Blood pressure sites Arm, right (07/17/24 10:24 AM) Weight Obtained Via Standing scale (07/17/24 10:24 AM) Social History Social History Type Response Smoking Status Former smoker; Other : quit 8 years ago; entered on: 03/01/16 Sex EKG study * Event Display: ECG 12-Lead Authored Date: Please click on pdf link to open report * Event Display: ECG 12-Lead Authored Date: Ventricular Rate: 77 BPM Atrial Rate: 77 BPM P-R Interval: 154 ms QRS Duration: 86 ms Q-T Interval: 388 ms QTC Calculation(Bazett): 439 ms P Warriormine: 27 degrees R Warriormine: 44 degrees T Warriormine: 38 degrees Normal sinus rhythm Normal ECG No previous ECGs available Confirmed by Harman Aguillon ([id number]) on 07/18/2024 7:11:31 AM [place]: Harman Aguillon Note * Bonnie Hawkins: PERFORM Event Display: Patient Education/Instruction Authored Date: Ambulatory Adult Visit Summary [facility] [place], [facility] Adult [facility] [address] [place] [address] Name: PIERRE OSBORNE : 1975?? Visit: 07/17/2024 10:19?? Ambulatory Visit Instructions ?? Your Care Team Primary Care Provider Fadia Tay? This Visit Provider Fadia Tay Your Diagnosis Palpitations Shortness of breath Vitals Signs Pulse Rate: 75 bpm Height: 185.42 cm Systolic Blood Pressure: 118 mm Hg Weight: 115.4 kg Diastolic Blood Pressure: 71 mm Hg Body Mass Index:??33.57 kg/m2??Critical Oxygen Saturation: 99 % Body surface area: 2.44 What to do next Scheduled Follow-Up Appointments Tuesday 9:30 AM EST ?? With: Clementina STEVENSON, Kristan Brady Where: [facility] [address] [place] [address]- Status: Pending Medications The list below reflects the information in our records and provided by you today along with any changes made during this visit. Please continue your medications until treatment is completed or stopped by your provider. If this is different from the information you have or there are other questions,please contact the prescribing provider. What How Much When Instructions Unchanged Esomeprazole (esomeprazole 20 mg oral powder for reconstitution, delayed release) 1 Each Oral Daily dissolve in water before taking ?? Unchanged Fluticasone Nasal (fluticasone 50 mcg/ inh nasal spray) See instructions SPRAY 1 SPRAY INTO BOTH NOSTRILS DAILY, SHAKE WELL BEFORE USING ?? Unchanged Multivitamin With Minerals (Centrum Adult MultiGummies) Daily Unchanged Greer-3 Polyunsaturated Fatty Acids (Greer Essentials) Oral Twice a day Unchanged PredniSONE (predniSONE 20 mg oral tablet) 2 tab(s) Oral Daily Medications and Immunizations Administered Medications Given During Visit No medications given during this visit.?? Allergies (NKA means No Known Allergies) NKA Common Emergency Awareness Tips IS IT A STROKE? Act FAST and Check for these signs: FACE Does the face look uneven? ARM Does one arm drift down? SPEECH Does their speech sound strange? TIME Call at any sign of stroke ?? Heart Attack Signs Chest discomfort: Most heart attacks involve discomfort in the center of the chest and lasts more than a few minutes, or goes away and comes back. It can feel like uncomfortable pressure, squeezing, fullness or pain. Discomfort in upper body: Symptoms can include pain or discomfort in one or both arms, back, neck, jaw or stomach. Shortness of breath: With or without discomfort. Other signs: Breaking out in a cold sweat, nausea, or lightheaded. Remember, MINUTES DO MATTER. If you experience any of these heart attack warning signs, call to get immediate medical attention! ?? Smoking can increase your chances of developing chronic health problems and can cause harmful effects to other family members in your house. If you smoke, you are strongly encouraged to quit. Please call [employer] Link at [phone] or [phone] Time [phone] ([phone]) or log in to [email or web address] for referrals to smoking cessation programs. ?? The National Suicide Prevention Hotline is available 30/05 if you or someone you know needs to find a reason to keep living. By calling 4-765-314-Cloudability (9102) you'll be connected to a skilled, trained counselor at a crisis center in your area. [facility] Portal You can view and manage your care through the patient portal or by using a health care juanita of your choosing. [email or web address] is a website that allows you to securely view your medical information including your hospital discharge summary, office visit summaries, medications and follow-up visits. You can also request appointments, renew medications, and request access to your medical information using a health care juanita of your choosing, or just ask a question. You can enroll at [email or web address] or register during your next office visit. [facility], in keeping with [facility] guidance, no longer requires face masks for staff, patientsor visitors in most situations. Similiar to time spent indoors at other locations, there is the chance that you were exposed to repiratory viruses during your time with us (such as flu or COVID-19). If you develop symptoms concerning for a viral respiratory infection, please seek testing (and treatment if indicated) from your medical provider or home test kit. ?? Disclaimer: The information provided is of a general nature and is intended to be used in conjunction with the recommendations and advice of your health care practitioner. Every effort has been made to ensure that the information provided is accurate and complete at the time it is provided to you however, as your needs change, or, as new information becomes available, different or additional instructions may be required. ?? If you have questions, please consult with your primary care provider or pharmacist, as appropriate. This information is not intended to serve as substitution for assessment and evaluation by a qualified health care provider. If you do not have a primary care provider, you may find a [facility] provider by calling [employer] Link at [phone]. Patient Care team information Care Team Personnel Name: Fadia Tay Position: [facility] PCO Associate Professional Member Role: PCP Address: Address: [address] [place] [address]- Care Team Related Persons Name: OSBORNENELLI PERSAUDYOLIE Address: home [address] [address] Name: DYLON NIRU Address: home [address] [place] [address]
--- OUTSIDE RECORDS SUMMARY | 2024-09-04 02:56 | XMS_ITS | Continuity of Care Document ---
Author Organization [facility] Shad Address [address] [place] [address]- Care Team Providers Care Sawmill Relief Worker Name Role Phone Fadia Tay Primary Care Physician Encounter [facility] Date(s): 05/04/22 - 05/11/22 [facility] Adult [address] [place] [address]- Attending Physician: Fadia Tay Referring Physician: Domenico Nicole MD Allergies, Adverse Reactions, Alerts No Known [...] Work 2Admin Note: - WORK 3Admin Note: - AT WORK 4Admin Note: 2009 AT WORK CONNECTION Medications acetaminophen-codeine 300 mg-30 mg oral tablet 1, tablet, By Mouth, Every 6 hours, # 15 tablet, Refills 0, Tot. Refills 0, Acute, 03/11/23 14:00:00 EDT, 03/04/22 13:37:00 EDT, Route to Pharmacy Electronically, [facility]/pharmacy #[id number], Partial fill upon patient request if the prescription is for a sched... Start Date: 03/04/22 Stop Date: 03/11/23 Status: Ordered esomeprazole 20 mg oral powder for reconstitution, delayed release 1 each = 20 mg, By Mouth, Daily, dissolve in water before taking, # 30 each, 5 Refills, Maintenance, 05/04/22 15:04:00 EDT, Powder, [facility]/pharmacy #[id number], Partial fill upon patient request if the prescription is for a schedule II opioid drug., 185.42, cm... Start Date: 05/04/22 Status: Ordered fluticasone 50 mcg/inh nasal spray See Instructions, USE 1 SPRAY IN BOTH NOSTRILS ONCE DAILY, # 48 mL, 0 Refills, Maintenance, [id number], 90, USE 1 SPRAY IN BOTH NOSTRILS ONCE DAILY, 185.42, cm, 03/19/21 10:56:00 EDT, Height, 113.3, kg, 03/19/21 10:56:00 EDT, Dry Weight Start Date: 05/04/21 Status: Ordered omeprazole 40 mg oral enteric coated capsule 1 capsule = 40 mg, By Mouth, 2 times a day, before a meal, # 60 capsule, 11 Refills, Maintenance, 04/17/20 10:13:00 EDT, EC Capsule, [facility]/pharmacy #[id number], 185.7, cm, 04/16/20 16:28:00 EDT, Height [...] oldest [Reference Range]: 1 Height 185.42 cm (05/04/22 2:36 PM) Weight 108.9 kg (05/04/22 2:36 PM) Oxygen Saturation [94-100 %] 99 % (05/04/22 2:36 PM) Pulse Rate [55-90 bpm] 70 bpm (05/04/22 2:36 PM) Body Mass Index [18.5-24.99] 31.67 *>HHI* (05/04/22 2:36 PM) Blood Pressure [90-138/55-84 mm Hg] 102/ 64mm Hg (05/04/22 2:36 PM) Temperature [96.8-100.4 DegF] 98.1 DegF (05/04/22 2:36 PM) Blood pressure sites Arm, left (05/04/22 2:36 PM) Temperature Route Temporal (05/04/22 2:36 PM) Weight Obtained Via Standing scale (05/04/22 2:36 PM) Social History Social History Type Response Smoking Status Former smoker; Other : quit 8 years ago; entered on: 03/01/16 Sex
--- OUTSIDE RECORDS SUMMARY | 2024-09-04 02:56 | XMS_ITS | Continuity of Care Document ---
Author Organization [facility] Kenneth Shad Address [address] [place] [address]- Care Team Providers Care Hatchery Laborer Name Role Phone Fadia Tay Primary Care Physician Encounter [facility] Date(s): 09/09/23 - 10/09/23 [facility] Adult [address] [place] [address]- Allergies, Adverse Reactions, Alerts No Known Allergies [...] Refills, Maintenance, 05/04/22 15:04:00 EDT, [id number], Partial fill upon patient request if the prescription is for a schedule II opioid drug., 185.42, cm... Start Date: 05/04/22 Status: Ordered Paxlovid 150 mg-100 mg oral tablet See Instructions, follow package instructions, # 30 tablet, 0 Refills, Maintenance, 09/15/22 13:02:00 EST, [facility]/pharmacy #[id number], not renally impaired, follow package instructions, [...] Care Team Personnel Name: Fadia Tay Position: [facility] PCO Associate Professional Member Role: PCP Address: Address: [address] [place] [address]- Care Team Related Persons Name: ИРИНА OSBORNE Address: home [address] [address] Name: NIRU OSBORNE Address: home [address] [place] [address]
--- OUTSIDE RECORDS SUMMARY | 2024-09-04 02:56 | XMS_ITS | Continuity of Care Document ---
Author Organization [facility] Address [address] [place] [address]- Care Team Providers Care Websphere Architect Name Role Phone Dione PERDOMO, Poli Lewis Primary Care Physician [phone] Encounter [facility] Date(s): 07/03/20 - 08/02/20 [facility] [address] [place] [address]- [facility] Attending Physician: AdmMattie bay Admitting Physician: AdmtrMattie Referring Physician: AdmtrMattie Allergies, Adverse Reactions, Alerts Substance Reaction Severity [...] 4Admin Note: 2008 AT WORK CONNECTION Medications arginine 500 mg [...]
--- OUTSIDE RECORDS SUMMARY | 2024-09-04 02:56 | XMS_ITS | Continuity of Care Document ---
Author Organization [facility] Shad lt Address [address] [place] [address]- Care Team Providers Care Soda Fountain Manager Name Role Phone Dione PERDOMO, Poli Lewis Primary Care Physician Encounter [facility] [place] [facility] Date(s): 04/17/20 - 05/17/20 [facility] Adult [address] [place] [address]- [facility] Attending Physician: AdmPillo bay8 Admitting Physician: AdmMattie aby Referring Physician: AdmMattie bay Allergies, Adverse Reactions, Alerts Substance Reaction Severity [...] 1 Refills, Maintenance, 11/23/19 10:53:00 EST, Tablet, [facility]/pharmacy #[id number], 185.7, cm, 10/30/19 11:15:00 EST, [...] Refills, Maintenance, 04/17/20 10:13:00 EDT, EC Capsule, [facility]/pharmacy #[id number], 185.7, cm, 04/16/20 16:28:00 EDT, [...]
--- OUTSIDE RECORDS SUMMARY | 2024-09-04 02:56 | XMS_ITS | Continuity of Care Document ---
Author Organization [facility] Kenneth Shad lt Address [address] [place] [address]- Care Team Providers Care Sports Statistician Name Role Phone Fadia Tay Primary Care Physician [phone] Encounter [facility] Date(s): 09/15/22 - 09/22/22 [facility] Adult [address] [place] [address]- Encounter Diagnosis COVID(Discharge Diagnosis) - 09/15/22 Attending Physician: Shari Corral NP Allergies, Adverse Reactions, Alerts No Known Allergies [...] Refills, Maintenance, 05/04/22 15:04:00 EDT, [id number], Partial fill upon patient request if the [...] Diagnosis Diagnosis Type Effective Dates Health Status Clini dung Service Informant COVID Discharge Diagnosis 09/15/22 Social History Social History Type Response Smoking Status Former smoker; Other : quit 8 years ago; entered on: 03/01/16 Sex Note * Jacqueline Bashir: PERFORM, SIGN, VERIFY Event Display: Patient Education/Instruction Authored Date: [id number] [facility] *TYREE Garcia Clinical Summary Name PIERRE OSBORNE Age 47 Years 1975 PCP Nayely ROGERS, Fadia Hunter PCP Visit Date 09/15/2022 12:46:00 Additional Instructions: Scheduled Appointments?? Future Appointments ?No Future Appointments Scheduled Follow-Up Instructions ?? Diagnosis COVID-19 Medications: Please continue your medications until treatment is completed or stopped by your provider. Discuss any questions related to medications with your provider. New Medications [id number] [address] [place], [place] [id number], [phone] nirmatrelvir-ritonavir (Paxlovid 150 mg-100 mg oral tablet) follow package instructions. Refills: 0. Next Dose: Medications to Continue with No Changes These medications were not printed or sent to your pharmacy Esomeprazole (esomeprazole 20 mg oral powder for reconstitution, delayed release) 1 Each Oral Daily. dissolve in water before taking. Refills: 5. Next Dose: Allergy Info:?? NKA Medications Given This Visit Future Orders ?No future orders Vital Signs Height Weight BMI Blood Pressure / Temperature Pulse Rate Respiratory Rate 02 Sat Mode of Delivery / You can now view a summary of your hospital visit from the comfort of your home through a free online portal called [employer]. [employer] is a website that allows you to securely view your medical information including discharge summary, medications and follow-up visits. ??You can alsosend a secure electronic message to your doctor???s office to request appointments, renew medications or just ask a question. You can enroll at [email or web address] or register during your next office visit. Disclaimer:?? The information provided is of a general nature and is intended to be used in conjunction with the recommendations and advice of your health care practitioner. ??Every effort has been made to ensure that the information provided is accurate and complete at the time it is provided to you however, as your needs change, or, as new ??information becomes available, different or additional instructions may be required. If you have questions, please consult with your primary care provider or pharmacist, as appropriate. ??This information is not intended to serve as substitution for assessment and evaluation by a qualified health care provider. If you do not have a primary care provider, you may find a [facility] provider by calling [facility] [employer] Link at [phone]. For information about the plan of care including goals and instructions for your diagnosis, please see the patient education orders section of this document. Patient Education Materials?? The content of this educational material or handout may have been modified, supplemented, or adapted from its original content and format to support your individualized medical care. Patient Care team information Care Team Personnel Name: Fadia Tay Position: [facility] PCO Associate Professional Member Role: PCP Address: Address: [address] [place] [address]- Care Team Related Persons Name: ИРИНА OSBORNE Address: home [address] [place] [address] Name: NIRU OSBORNE Address: home [address] [place] [address]
--- OUTSIDE RECORDS SUMMARY | 2024-09-04 02:56 | XMS_ITS | Continuity of Care Document ---
Author Organization [facility] ter Address [address] [place] [address]- Care Team Providers Care Sweet Pickled Fruit Maker Name Role Phone Dione PERDOMO, Poli Lewis Primary Care Physician [phone] Encounter [facility] Date(s): 01/16/21 - 02/19/[address] [address]- Attending Physician: Charlotte Muñoz NP Admitting Physician: Wadna STEVENSON, Charlotte Referring Physician: Wanda GRIZZLY WORKERCharlotte Allergies, Adverse Reactions, Alerts Substance Reaction Severity [...] Refills, Maintenance, 07/03/20 10:56:00 EDT, REC Powder, [facility]/pharmacy #[id number], 240 mL By Mouth Every 10 minutes, 185.7, cm, 07/03/20 10:10:00 EDT, Height Start Date: 07/03/20 Status: Ordered omeprazole 40 mg oral enteric coated capsule 1 capsule = 40 mg, By Mouth, 2 times a day, before a meal, # 60 capsule, 11 Refills, Maintenance, 04/17/20 10:13:00 EDT, EC Capsule, [facility]/pharmacy #[id number], 185.7, cm, 04/16/20 [...]
--- OUTSIDE RECORDS SUMMARY | 2024-09-04 02:56 | XMS_ITS | Continuity of Care Document ---
Author Organization [facility] Shad lt Address [address] [place] [address]- Care Team Providers Care Administrative Medical Director Name Role Phone Fadia Tay Primary Care Physician Encounter [facility] [place] Date(s): 03/04/22 - 04/03/22 [facility] Adult [address] [place] [address]- Attending Physician: Mattie Davis Admitting Physician: Mattie Davis Referring Physician: AdmtrMattie Allergies, Adverse Reactions, Alerts No Known Allergies [...] 03/04/22 13:37:00 EDT, Route to Pharmacy Electronically, [facility]/pharmacy #[id number], Partial fill upon patient request if the prescription is for a sched... Start Date: 03/04/22 Stop Date: 03/11/23 Status: Ordered fluticasone 50 mcg/inh nasal spray See Instructions, USE 1 SPRAY IN BOTH NOSTRILS ONCE DAILY, # 48 mL, 0 Refills, Maintenance, [id number], 90, USE 1 SPRAY IN BOTH NOSTRILS ONCE DAILY, 185.42, cm, 03/19/21 10:56:00 EDT, Height, 113.3, kg, 03/19/21 10:56:00 EDT, Dry Weight Start Date: 05/04/21 Status: Ordered NexIUM 24HR 20 mg oral delayed release capsule 1 capsule = 20 mg, By Mouth, 2 times a day, 30 min before a meal, # 60 capsule, 11 Refills, Maintenance, 07/03/20 10:57:00 EDT, [facility]/pharmacy #[id number], brand name nexium 24 hr as per insurance, 185.7, cm, 07/03/20 10:10:00 EDT, Height Start Date: 07/03/20 Status: Ordered omeprazole 40 mg oral enteric coated capsule 1 capsule = 40 mg, By Mouth, 2 times a day, before a meal, # 60 capsule, 11 Refills, Maintenance, 04/17/20 10:13:00 EDT, EC Capsule, [facility]/pharmacy #[id number], 185.7, cm, 04/16/20 16:28:00 EDT, Height [...]
--- OUTSIDE RECORDS SUMMARY | 2024-09-04 02:56 | XMS_ITS | Continuity of Care Document ---
Author Organization [facility] Shad Address [address] [place] [address]- Care Team Providers Care Banking Services Officer Name Role Phone Fadia Tay Primary Care Physician Encounter [facility] Date(s): 03/07/24 - 04/06/24 [facility] Adult [address] [place] [address]- Attending Physician: AdmPillo [id number] Admitting Physician: AdmtrMattie Referring Physician: Admtr, Ar8 Allergies, Adverse Reactions, [...] Refills, Maintenance, 05/04/22 15:04:00 EDT, [id number], Partial fill upon patient request if the prescription is for a schedule II opioid drug., 185.42, cm... Start Date: 05/04/22 Status: Ordered Flonase Allergy Relief 50 mcg/inh nasal spray 1 sprays = 50 mcg, Nares, Both, Daily, shake well before using, # 9.9 mL, 3 Refills, Maintenance, 03/07/24 10:14:00 EDT, [place], [id number], Partial fill upon patient request if the prescription is for a schedule II opioid drug., 185.42, cm, 05... Start Date: 03/07/24 Status: Ordered predniSONE 20 mg oral tablet [...] Care Team Personnel Name: Fadia Tay Position: [facility] PCO Associate Professional Member Role: PCP Address: Address: [address] [place] [address]- Care Team Related Persons Name: ИРИНА OSBORNE Address: home [address] [address] Name: NIRU OSBORNE Address: home [address] [place] [address]
--- OUTSIDE RECORDS SUMMARY | 2024-09-04 02:56 | XMS_ITS | Continuity of Care Document ---
Author Organization [facility] Kenneth Shad Address [address] [place] [address]- Care Team Providers Care Mohs Surgeon Name Role Phone Fadia Tay Primary Care Physician [phone] [place] [facility] [place](s): 04/26/22 - 05/26/22 [facility] Adult [address] [place] [address]- Allergies, Adverse Reactions, Alerts No Known Allergies [...] 03/04/22 13:37:00 EDT, Route to Pharmacy Electronically, [facility]/pharmacy #[id number], Partial fill upon patient request if the prescription is for a sched... Start Date: 03/04/22 Stop Date: 03/11/23 Status: Ordered esomeprazole 20 mg oral powder for reconstitution, delayed release 1 each = 20 mg, By Mouth, Daily, dissolve in water before taking, # 30 each, 5 Refills, Maintenance, 05/04/22 15:04:00 EDT, Powder, [facility]/pharmacy #[id number], Partial fill upon patient request if the prescription is for a schedule II opioid drug., 185.42, cm... Start Date: 05/04/22 Status: Ordered fluticasone 50 mcg/inh nasal spray See Instructions, USE 1 SPRAY IN BOTH NOSTRILS ONCE DAILY, # 48 mL, 0 Refills, Maintenance, [facility], 90, USE 1 SPRAY IN BOTH NOSTRILS ONCE DAILY, 185.42, cm, 03/19/21 10:56:00 EDT, Height, 113.3, kg, 03/19/21 10:56:00 EDT, Dry Weight Start Date: 05/04/21 Status: Ordered omeprazole 40 mg oral enteric coated capsule 1 capsule = 40 mg, By Mouth, 2 times a day, before a meal, # 60 capsule, 11 Refills, Maintenance, 04/17/20 10:13:00 EDT, EC Capsule, [facility]/pharmacy #[id number], 185.7, cm, 04/16/20 16:28:00 EDT, [...]
--- OUTSIDE RECORDS SUMMARY | 2024-09-04 02:56 | XMS_ITS | Continuity of Care Document ---
Author Organization [facility] Kenneth Shad lt Address [address] [place] [address]- Care Team Providers Care Vamp Wetter Name Role Phone Dione PERDOMO, Poli Lewis Primary Care Physician Encounter [facility] [place] Date(s): 10/30/19 - 11/06/19 [facility] Adult [address] [place] [address]- [facility] Attending Physician: Domenico Nicole MD Allergies, Adverse Reactions, Alerts Substance [...] mg, By Mouth, Daily, # 30 tablet, 0 Refills, Maintenance, 10/30/19 11:35:00 EST, [facility]t, [id number], 185.7, cm, 10/30/19 11:15:00 EST, Height Start Date: 10/30/19 Status: Ordered fluticasone 50 mcg/inh nasal spray 1 sprays, Nares, Both, Daily, # 1 each, 3 Refills, Maintenance, 03/09/18 15:26:34 EDT, 1 sprays Nares, Both Daily Start Date: 03/09/18 Status: Ordered NexIUM OTC = 20 mg, By Mouth, Daily, 0 Refills, Maintenance, 10/30/19 11:20:00 EST Start Date: 10/30/19 Status: Ordered Problem List Condition Effective Dates Status Health Status Inform ant Allergic rhinitis(Confirmed) Active Arthritis of knee - right(Confirmed) Active Esophageal reflux (GERD)(Confirmed) 04/13/11 Active Pain of right arm(Confirmed) Active Plantar fasciitis of right foot(Confirmed) Active Vital Signs Most recent to oldest [Reference Range]: 1 Height 185.7 cm (10/30/19 11:15 AM) Weight 116.9 kg (10/30/19 11:15 AM) Oxygen Saturation [94-100 %] 98 % (10/30/19 11:15 AM) Pulse Rate [55-90 bpm] 98 bpm *H* (10/30/19 11:15 AM) Body Mass Index [18.5-24.99] 33.9 *>HHI* (10/30/19 11:15 AM) Blood Pressure [90-138/55-84 mm Hg] 112/ 74mm Hg (10/30/19 11:15 AM) Respiratory Rate [16-30 br/min] 16 br/mi n (10/30/19 11:15 AM) Temperature [96.8-100.4 DegF] 97.7 DegF (10/30/19 11:15 AM) Mode of Delivery (Oxygen) Room air (10/30/19 11:15 AM) Blood pressure sites Arm, left (10/30/19 11:15 AM) Temperature Route Oral (10/30/19 11:15 AM) Weight Obtained Via Standing scale (10/30/19 11:15 AM) Social History Social History Type Response Smoking Status Former smoker; Other : quit 8 years ago; entered on: 03/01/16 Sex
--- OUTSIDE RECORDS SUMMARY | 2024-09-04 02:56 | XMS_ITS | Continuity of Care Document ---
Author Organization [facility] Kenneth Shad Address [address] [place] [address]- Care Team Providers Care Digitizer Operator Name Role Phone Fadia Tay Primary Care Physician [place] [facility] [place] 06/03/22 [facility] Adult [address] [place] [address]- Allergies, Adverse Reactions, Alerts No Known Allergies [...] 13:37:00 EDT, Route to Pharmacy Electronically, [facility]/pharmacy #[id number], Partial fill upon patient request if the prescription is for a sched... Start Date: 03/04/22 Stop Date: 03/11/23 Status: Ordered esomeprazole 20 mg oral powder for reconstitution, delayed release 1 each = 20 mg, By Mouth, Daily, dissolve in water before taking, # 30 each, 5 Refills, Maintenance, 05/04/22 15:04:00 EDT, Powder, [facility]/pharmacy #[id number], Partial fill upon patient request if the prescription is for a schedule II opioid drug., 185.42, cm... Start Date: 05/04/22 Status: Ordered fluticasone 50 mcg/inh nasal spray See Instructions, USE 1 SPRAY IN BOTH NOSTRILS ONCE DAILY, # 48 mL, 0 Refills, Maintenance, [facility], 90, USE 1 SPRAY IN BOTH NOSTRILS ONCE DAILY, 185.42, cm, 03/19/21 10:56:00 EDT, Height, 113.3, kg, 03/19/21 10:56:00 EDT, Dry Weight Start Date: 05/04/21 Status: Ordered omeprazole 40 mg oral enteric coated capsule 1 capsule = 40 mg, By Mouth, 2 times a day, before a meal, # 60 capsule, 11 Refills, Maintenance, 04/17/20 10:13:00 EDT, EC Capsule, [facility]/pharmacy #[id number], 185.7, cm, 04/16/20 16:28:00 EDT, Height [...]
--- OUTSIDE RECORDS SUMMARY | 2024-09-04 02:56 | XMS_ITS | Continuity of Care Document ---
Author Organization [facility] Shad lt Address [address] [place] [address]- Care Team Providers Care Manager Placement Name Role Phone Fadia Tay Primary Care Physician Encounter [facility] [place] Date(s): 02/22/22 - 03/24/22 [facility] Adult [address] [place] [address]- Allergies, Adverse Reactions, Alerts No Known Allergies [...] 03/04/22 13:37:00 EDT, Route to Pharmacy Electronically, [facility]/pharmacy #[id number], Partial fill upon patient request if the prescription is for a sched... Start Date: 03/04/22 Stop Date: 03/11/23 Status: Ordered fluticasone 50 mcg/inh nasal spray See Instructions, USE 1 SPRAY IN BOTH NOSTRILS ONCE DAILY, # 48 mL, 0 Refills, Maintenance, [facility], 90, USE 1 SPRAY IN BOTH NOSTRILS ONCE DAILY, 185.42, cm, 03/19/21 10:56:00 EDT, Height, 113.3, kg, 03/19/21 10:56:00 EDT, Dry Weight Start Date: 05/04/21 Status: Ordered NexIUM 24HR 20 mg oral delayed release capsule 1 capsule = 20 mg, By Mouth, 2 times a day, 30 min before a meal, # 60 capsule, 11 Refills, Maintenance, 07/03/20 10:57:00 EDT, [facility]/pharmacy #[id number], brand name nexium 24 hr as [...]
--- OUTSIDE RECORDS SUMMARY | 2024-09-04 02:56 | XMS_ITS | Continuity of Care Document ---
Author Organization [facility] [place] Shad lt Address [address] [place] [address]- Care Team Providers Care Merchandising Lead Name Role Phone Fadia Tay Primary Care Physician [phone] [place] [facility] [place] [id number] Date(s): 02/25/22 - 03/27/22 [facility] [place] Adult [address] [place] [address]- Allergies, Adverse Reactions, Alerts No Known Allergies [...] 03/04/22 13:37:00 EDT, Route to Pharmacy Electronically, [facility]/pharmacy #[id number], Partial fill upon patient request if the prescription is for a sched... Start Date: 03/04/22 Stop Date: 03/11/23 Status: Ordered fluticasone 50 mcg/inh nasal spray See Instructions, USE 1 SPRAY IN BOTH NOSTRILS ONCE DAILY, # 48 mL, 0 Refills, Maintenance, [facility], 90, USE 1 SPRAY IN BOTH NOSTRILS ONCE DAILY, 185.42, cm, 03/19/21 10:56:00 EDT, Height, 113.3, kg, 03/19/21 10:56:00 EDT, Dry Weight Start Date: 05/04/21 Status: Ordered NexIUM 24HR 20 mg oral delayed release capsule 1 capsule = 20 mg, By Mouth, 2 times a day, 30 min before a meal, # 60 capsule, 11 Refills, Maintenance, 07/03/20 10:57:00 EDT, [facility]/pharmacy #[id number], brand name nexium 24 hr as [...]
--- OUTSIDE RECORDS SUMMARY | 2024-09-04 02:56 | XMS_ITS | Continuity of Care Document ---
Author Organization [facility] Kenneth Shad Address [address] [place] [address]- Care Team Providers Care Jawbone Puller Name Role Phone Fadia Tay Primary Care Physician [place] [facility] [place] 03/19[place]24 [place] 04/18/24 [facility] Adult [address] [place] [address]- Allergies, Adverse Reactions, Alerts No Known Allergies [...] Refills, Maintenance, 05/04/22 15:04:00 EDT, [facility]der, [id number], Partial fill upon patient request if the prescription is for a schedule II opioid drug., 185.42, cm... Start Date: 05/04/22 Status: Ordered Flonase Allergy Relief 50 mcg/inh nasal spray 1 sprays = 50 mcg, Nares, Both, Daily, shake well before using, # 9.9 mL, 3 Refills, Maintenance, 03/07/24 10:14:00 EDT, [place], [facility]/pharmacy #[id number], Partial fill upon patient request if [...] Care Team Personnel Name: Fadia Tay Position: [facility] PCO Associate Professional Member Role: PCP Address: Address: [address] [place] [id number] Care Team Related Persons Name: ИРИНА OSBORNE Address: home [address] [address] Name: NIRU OSBORNE Address: home [address] [place] [address]
--- OUTSIDE RECORDS SUMMARY | 2024-09-04 02:56 | XMS_ITS | Continuity of Care Document ---
Author Organization [facility] Shad lt Address [address] [place] [address]- Care Team Providers Care Acid Treater Name Role Phone Poli Parham MD Primary Care Physician [phone] Encounter [facility] [place] Date(s): 01/14/21 - 02/13/21 [facility] Adult [address] [place] [address]- Allergies, Adverse Reactions, Alerts Substance Reaction Severity [...] Refills, Maintenance, 07/03/20 10:56:00 EDT, REC Powder, [facility]/pharmacy #0373, 240 mL By Mouth Every 10 [...]
--- OUTSIDE RECORDS SUMMARY | 2024-09-04 02:56 | XMS_ITS | Continuity of Care Document ---
Author Organization [facility] Shad Address [address] [place] [address]- Care Team Providers Care Splicing Machine Operator Automatic Name Role Phone Fadia Tay Primary Care Physician [phone] [place] [facility] [place](s): 05/04/22 - 06/03/22 [facility] Adult [address] [place] [address]- Attending Physician: AdmPillo [email or web address] Admitting Physician: AdmtrMattie [...] 03/04/22 13:37:00 EDT, Route to Pharmacy Electronically, [facility]/pharmacy #[id number], Partial fill upon patient request if the prescription is for a sched... Start Date: 03/04/22 Stop Date: 03/11/23 Status: Ordered esomeprazole 20 mg oral powder for reconstitution, delayed release 1 each = 20 mg, By Mouth, Daily, dissolve in water before taking, # 30 each, 5 Refills, Maintenance, 05/04/22 15:04:00 EDT, Powder, [facility]/pharmacy #[id number], Partial fill upon patient request if the prescription is for a schedule II opioid drug., 185.42, cm... Start Date: 05/04/22 Status: Ordered fluticasone 50 mcg/inh nasal spray See Instructions, USE 1 SPRAY IN BOTH NOSTRILS ONCE DAILY, # 48 mL, 0 Refills, Maintenance, [facility], 90, USE 1 SPRAY IN BOTH NOSTRILS ONCE DAILY, 185.42, cm, 03/19/21 10:56:00 EDT, Height, 113.3, kg, 03/19/21 10:56:00 EDT, Dry Weight Start Date: 05/04/21 Status: Ordered omeprazole 40 mg oral enteric coated capsule 1 capsule = 40 mg, By Mouth, 2 times a day, before a meal, # 60 capsule, 11 Refills, Maintenance, 04/17/20 10:13:00 EDT, EC Capsule, [facility]/pharmacy #[id number], 185.7, cm, [...]
--- OUTSIDE RECORDS SUMMARY | 2024-09-04 02:56 | XMS_ITS | Continuity of Care Document ---
Author Organization [facility] Kenneth Shad lt Address [address] [place] [address]- Care Team Providers Care Chief Cardiopulmonary Technologist Name Role Phone Fadia Tay Primary Care Physician [place] [facility] [place]): [place]04[place]22 - 03/11/22 [facility] Adult [address] [place] [address]- Encounter Diagnosis Head trauma(Discharge Diagnosis) - 03/06/22 Anxiety(Discharge Diagnosis) - 03/06/22 Attending Physician: Fadia Tay Allergies, Adverse Reactions, [...] 03/04/22 13:37:00 EDT, Route to Pharmacy Electronically, [facility]/pharmacy #[id number], Partial fill upon patient request if the prescription is for a sched... Start Date: 03/04/22 Stop Date: 03/11/23 Status: Ordered fluticasone 50 mcg/inh nasal spray See Instructions, USE 1 SPRAY IN BOTH NOSTRILS ONCE DAILY, # 48 mL, 0 Refills, Maintenance, [facility], 90, USE 1 SPRAY IN BOTH NOSTRILS [...] Dates Health Status Clini dung Service Informant Head trauma Discharge Diagnosis 03/06/22 Anxiety Discharge Diagnosis 03/06/22 Vital Signs Most recent to oldest [Reference Range]: 1 Height 185.42 cm (03/04/22 9:15 AM) Weight 112.3 kg (03/04/22 9:15 AM) Oxygen Saturation [94-100 %] 97 % (03/04/22 9:15 AM) Pulse Rate [55-90 bpm] 90 bpm (03/04/22 9:15 AM) Body Mass Index [18.5-24.99] 32.66 *>HHI* (03/04/22 9:15 AM) Blood Pressure [90-138/55-84 mm Hg] 136/ 75mm Hg (03/04/22 9:15 AM) Blood pressure sites Arm, left (03/04/22 9:15 AM) Temperature Route Oral (03/04/22 9:15 AM) Weight Obtained Via Standing scale (03/04/22 9:15 AM) Social History Social History Type Response Smoking Status Former smoker; Other : quit 8 years ago; entered on: 03/01/16 Sex
--- OUTSIDE RECORDS SUMMARY | 2024-09-04 02:56 | XMS_ITS | Continuity of Care Document ---
Author Organization [facility] Shad lt Address [address] [place] [address]- Care Team Providers Care Hand Compositor Name Role Phone Dione PERDOMO, Poli Lewis Primary Care Physician [phone] Encounter [facility] [place] Date(s): 11/14/20 - 12/14/20 [facility] Adult [address] [place] [address]- Allergies, Adverse Reactions, Alerts Substance Reaction Severity [...]
--- OUTSIDE RECORDS SUMMARY | 2024-09-04 02:56 | XMS_ITS | Continuity of Care Document ---
Author Organization [facility] Kenneth Shad Address [address] [place] [address]- Care Team Providers Care Bonderizer Name Role Phone Fadia Tay Primary Care Physician [facility] [place] Date(s): 05/06/22 - 06/05/22 [facility] [place] Adult [address] [place] [address]- Allergies, Adverse Reactions, Alerts No Known Allergies [...] 03/04/22 13:37:00 EDT, Route to Pharmacy Electronically, [facility]/pharmacy #[id number], Partial fill upon patient request if the prescription is for a sched... Start Date: 03/04/22 Stop Date: 03/11/23 Status: Ordered esomeprazole 20 mg oral powder for reconstitution, delayed release 1 each = 20 mg, By Mouth, Daily, dissolve in water before taking, # 30 each, 5 Refills, Maintenance, 05/04/22 15:04:00 EDT, Powder, [facility]/pharmacy #[id number], Partial fill upon patient request if the prescription is for a schedule II opioid drug., 185.42, cm... Start Date: 05/04/22 Status: Ordered fluticasone 50 mcg/inh nasal spray See Instructions, USE 1 SPRAY IN BOTH NOSTRILS ONCE DAILY, # 48 mL, 0 Refills, Maintenance, [facility], 90, USE 1 SPRAY IN BOTH NOSTRILS ONCE DAILY, 185.42, cm, 03/19/21 10:56:00 EDT, Height, 113.3, kg, 03/19/21 10:56:00 EDT, Dry Weight Start Date: 05/04/21 Status: Ordered omeprazole 40 mg oral enteric coated capsule 1 capsule = 40 mg, By Mouth, 2 times a day, before a meal, # 60 capsule, 11 Refills, Maintenance, 04/17/20 10:13:00 EDT, EC Capsule, [facility]/pharmacy #0373, 185.7, cm, 04/16/20 [...]
--- OUTSIDE RECORDS SUMMARY | 2024-09-04 02:56 | XMS_ITS | Continuity of Care Document ---
Author Organization [facility] Shad lt Address [address] [place] [address]- Care Team Providers Care Pre Assembly Wirer Name Role Phone Fadia Tay Primary Care Physician [phone] En[facility] [place] [id number] Date(s): 03/04/22 - 04/03/22 [facility] Adult [address] [place] [address]- Allergies, Adverse Reactions, Alerts No Known Allergies [...] 13:37:00 EDT, Route to Pharmacy Electronically, [facility]/pharmacy #[id number], Partial fill upon patient request if the prescription is for a sched... Start Date: 03/04/22 Stop Date: 03/11/23 Status: Ordered fluticasone 50 mcg/inh nasal spray See Instructions, USE 1 SPRAY IN BOTH NOSTRILS ONCE DAILY, # 48 mL, 0 Refills, Maintenance, [facility], 90, USE 1 SPRAY IN BOTH NOSTRILS ONCE DAILY, 185.42, cm, 03/19/21 10:56:00 EDT, Height, 113.3, kg, 03/19/21 10:56:00 EDT, Dry Weight Start Date: 05/04/21 Status: Ordered NexIUM 24HR 20 mg oral delayed release capsule 1 capsule = 20 mg, By Mouth, 2 times a day, 30 min before a meal, # 60 capsule, 11 Refills, Maintenance, 07/03/20 10:57:00 EDT, [facility]/pharmacy #[id number], brand name nexium 24 hr as [...]
--- OUTSIDE RECORDS SUMMARY | 2024-09-04 02:56 | XMS_ITS | Continuity of Care Document ---
Author Organization [facility] Kenneth Shad Address [address] [place] [address]- Care Team Providers Care Facility Maintenance Technician Name Role Phone Fadia Tay Primary Care Physician [phone] Encounter [facility] [place] Date(s): 09/13/23 - 10/13/23 [facility] Adult [address] [place] [address]- Attending Physician: AdmPillo [email or web address] Admitting Physician: AdmtrMattie [...] Refills, Maintenance, 05/04/22 15:04:00 EDT, [facility], [facility], Partial fill upon patient request if the [...] Care Team Personnel Name: Fadia Tay Position: [facility] PCO Associate Professional Member Role: PCP Address: Address: [address] [place] [address] Care Team Related Persons Name: ИРИНА OSBORNE Address: home [address] [address] Name: NIRU OSBORNE Address: home [address] [place] [address]
--- OUTSIDE RECORDS SUMMARY | 2024-09-04 02:56 | XMS_ITS | Continuity of Care Document ---
Author Organization [facility] Kenneth Shad lt Address [address] [place] [address]- Care Team Providers Care Conveyor Belt Installer Name Role Phone Poli Parham MD Primary Care Physician [place] [facility] [place] 03/27/20 - 04/03/20 [facility] [place] [address] [place] [address]- [facility] Attending Physician: Poli Parham MD Allergies, Adverse [...] 1 Refills, Maintenance, 11/23/19 10:53:00 EST, Tablet, [facility]/pharmacy #[id number], 185.7, cm, 10/30/19 11:15:00 EST, Height [...]
--- OUTSIDE RECORDS SUMMARY | 2024-09-04 02:56 | XMS_ITS | Continuity of Care Document ---
Author Organization [facility] Kenneth Shad lt Address [address] [place] [address]- Care Team Providers Care Tractor Mechanic Helper Name Role Phone Poli Parham MD Primary Care Physician En[place] [facility] [place] Date(s[place] 04/23/21 - 05/23/21 [facility] Adult [address] [place] [address]- Attending Physician: Admphu, [id number] Admitting Physician: AdmtrMattie Referring Physician: Admtr, Ar8 [...] 48 mL, 0 Refills, Maintenance, [facility], 90, USE 1 SPRAY IN BOTH NOSTRILS [...]
--- OUTSIDE RECORDS SUMMARY | 2024-09-04 02:56 | XMS_ITS | Continuity of Care Document ---
Author Organization [facility] Kenneth Shad Address [address] [place] [address]- Care Team Providers Care Cleaning Crew Member Name Role Phone Fadia Tay Primary Care Physician [phone] Encounter [facility] [place] Date(s): 04/03/24 - 05/03/24 [facility] Adult [address] [place] [address]- Allergies, Adverse Reactions, Alerts No Known Allergies [...] Refills, Maintenance, 05/04/22 15:04:00 EDT, [facility], [id number], Partial fill upon patient request if the prescription is for a schedule II opioid drug., 185.42, cm... Start Date: 05/04/22 Status: Ordered Flonase Allergy Relief 50 mcg/inh nasal spray 1 sprays = 50 mcg, Nares, Both, Daily, shake well before using, # 9.9 mL, 3 Refills, Maintenance, 03/07/24 10:14:00 EDT, [place], [facility]/pharmacy #[id number], Partial fill upon patient request if [...] Personnel Name: Fadia Tay Position: [facility] PCO Associate Professional Member Role: PCP Address: Address: [address] [place] [address] [id number] Care Team Related Persons Name: ИРИНА OSBORNE Address: home [address] [address] Name: NIRU OSBORNE Address: home [address] [place] [address]
--- OUTSIDE RECORDS SUMMARY | 2024-09-04 02:56 | XMS_ITS | Continuity of Care Document ---
Author Organization [facility] Shad lt Address [address] [place] [address]- Care Team Providers Care Net Front End Developer Name Role Phone Dione PERDOMO, Poli Lewis Primary Care Physician [phone] Encounter [facility] [place] Date(s): 06/23/20 - 07/23/20 [facility] Adult [address] [place] [address]- [facility] Attending Physician: Pillo Davis8 Admitting Physician: Mattie Davis Referring Physician: AdmtrMattie [...]
--- OUTSIDE RECORDS SUMMARY | 2024-09-04 02:56 | XMS_ITS | Continuity of Care Document ---
Author Organization [facility] Shad lt Address [address] [place] [address]- Care Team Providers Care Cafe Lead Name Role Phone Dione PERDOMO, Poli Lewis Primary Care Physician [phone] En[place] [facility] [place](s): 01/14/21 - 01/21/21 [facility] Adult [address] [place] [address]- Encounter Diagnosis Abdominal pain(Discharge Diagnosis) - 01/14/21 Attending Physician: Wanda STATISTICAL PROGRAMMER ANALYST, [place] Allergies, Adverse Reactions, Alerts Substance Reaction Severity [...] Maintenance, 04/17/20 10:13:00 EDT, EC Capsule, [facility]/pharmacy #[id number], 185.7, cm, 04/16/20 16:28:00 [...] Diagnosis Diagnosis Type Effective Dates Health Status Cl inical Service Informant Abdominal pain Discharge Diagnosis 01/14/21 Vital Signs Most recent to oldest [Reference Range]: 1 Height 185.7 cm (01/14/21 11:11 AM) Weight 112.6 kg (01/14/21 11:11 AM) Oxygen Saturation [94-100 %] 98 % (01/14/21 11:11 AM) Pulse Rate [55-90 bpm] 76 bpm (01/14/21 11:11 AM) Body Mass Index [18.5-24.99] 32.65 *>HHI* (01/14/21 11:11 AM) Blood Pressure [90-138/55-84 mm Hg] 106/ 68mm Hg (01/14/21 11:11 AM) Temperature [96.8-100.4 DegF] 97.7 DegF (01/14/21 11:11 AM) Mode of Delivery (Oxygen) Room air (01/14/21 11:11 AM) Blood pressure sites Arm, right (01/14/21 11:11 AM) Temperature Route Oral (01/14/21 11:11 AM) Weight Obtained Via Standing scale (01/14/21 11:11 AM) Social History Social History Type Response Smoking Status Former smoker; Other : quit 8 years ago; entered on: 03/01/16 Sex
--- OUTSIDE RECORDS SUMMARY | 2024-09-04 02:56 | XMS_ITS | Continuity of Care Document ---
Author Organization [facility] Kenneth Shad Address [address] [place] [address]- Care Team Providers Care News Reporter Name Role Phone Fadia Tay Primary Care Physician [phone] Encounter [facility] [place] Date(s): 01/19/24 - 02/18/24 [facility] Adult [address] [place] [address]- Allergies, Adverse Reactions, Alerts No Known Allergies [...] Refills, Maintenance, 05/04/22 15:04:00 EDT, [facility], [id number], Partial fill upon patient request if the prescription is for a schedule II opioid drug., 185.42, cm... Start Date: 05/04/22 Status: Ordered predniSONE 20 mg oral tablet 2 tablet = 40 mg, By Mouth, Daily, # 6 tablet, 0 Refills, Maintenance, 02/01/24 11:07:00 EDT, Tablet, [facility]/pharmacy #[id number], Partial fill upon patient request if the [...] Care Team Personnel Name: Fadia Tay Position: [facility] PCO Associate Professional Member Role: PCP Address: Address: [address] [place] [address]- Care Team Related Persons Name: ИРИНА OSBORNE Address: home [address] [address] Name: NIRU OSBORNE Address: home [address] [place] [address]
--- OUTSIDE RECORDS SUMMARY | 2024-09-04 02:57 | XMS_ITS | Continuity of Care Document ---
Author Organization [facility] Shad Address [address] [place] [address]- Care Team Providers Care Side Gluer Name Role Phone Fadia Tay Primary Care Physician [place] [facility] [place](s[place] 04/20/22 - 04/27/22 [facility] Adult [address] [place] [address]- Encounter Diagnosis Abdominal pain(Discharge Diagnosis) - 04/20/22 Attending Physician: Not on Staff, Attending MD Referring Physician: Fadia Tay Allergies, Adverse [...] 03/04/22 13:37:00 EDT, Route to [facility], [id number], Partial fill upon patient request if the prescription is for a sched... Start Date: 03/04/22 Stop Date: 03/11/23 Status: Ordered fluticasone 50 mcg/inh nasal spray See Instructions, USE 1 SPRAY IN BOTH NOSTRILS ONCE DAILY, # 48 mL, 0 Refills, Maintenance, [id number], 90, USE 1 SPRAY IN BOTH NOSTRILS ONCE DAILY, 185.42, cm, 03/19/21 10:56:00 EDT, Height, 113.3, kg, 03/19/21 10:56:00 EDT, Dry Weight Start Date: 05/04/21 Status: Ordered NexIUM 24HR 20 mg oral delayed release capsule 1 capsule = 20 mg, By Mouth, 2 times a day, 30 min before a meal, # 60 capsule, 11 Refills, Maintenance, 07/03/20 10:57:00 EDT, [facility]/pharmacy #[id number], brand name nexium 24 hr as per insurance, 185.7, cm, 07/03/20 10:10:00 EDT, Height Start Date: 07/03/20 Status: Ordered omeprazole 40 mg oral enteric coated capsule 1 capsule = 40 mg, By Mouth, 2 times a day, before a meal, # 60 capsule, 11 Refills, Maintenance, 04/17/20 10:13:00 EDT, EC Capsule, [facility]/pharmacy #[id number], 185.7, cm, 04/16/20 16:28:00 [...] inical Service Informant Abdominal pain Discharge Diagnosis 04/20/22 Vital Signs Most recent to oldest [Reference Range]: 1 Height 185.42 cm (04/20/22 9:22 AM) Weight 109.1 kg (04/20/22 9:22 AM) Oxygen Saturation [94-100 %] 100 % (04/20/22 9:22 AM) Pulse Rate [55-90 bpm] 72 bpm (04/20/22 9:22 AM) Body Mass Index [18.5-24.99] 31.73 *>HHI* (04/20/22 9:22 AM) Blood Pressure [90-138/55-84 mm Hg] 107/ 63mm Hg (04/20/22 9:22 AM) Blood pressure sites Arm, left (04/20/22 9:22 AM) Weight Obtained Via Standing scale (04/20/22 9:22 AM) Social History Social History Type Response Smoking Status Former smoker; Other : quit 8 years ago; entered on: 03/01/16 Sex
--- OUTSIDE RECORDS SUMMARY | 2024-09-04 02:57 | XMS_ITS | Continuity of Care Document ---
Author Organization [facility] Kenneth Shad Address [address] [place] [address]- Care Team Providers Care Pipe Machine Operator Name Role Phone Fadia Tay Primary Care Physician Encounter [facility] [place] Date(s): 04/22/22 - 05/22/22 [facility] Adult [address] [place] [address]- Allergies, Adverse Reactions, Alerts No Known Allergies [...] 03/04/22 13:37:00 EDT, Route to Pharmacy Electronically, [facility]/pharmacy #[id number], Partial fill upon patient request if the prescription is for a sched... Start Date: 03/04/22 Stop Date: 03/11/23 Status: Ordered esomeprazole 20 mg oral powder for reconstitution, delayed release 1 each = 20 mg, By Mouth, Daily, dissolve in water before taking, # 30 each, 5 Refills, Maintenance, 05/04/22 15:04:00 EDT, Powder, [facility]/pharmacy #[id number], Partial fill upon patient request if the prescription is for a schedule II opioid drug., 185.42, cm... Start Date: 05/04/22 Status: Ordered fluticasone 50 mcg/inh nasal spray See Instructions, USE 1 SPRAY IN BOTH NOSTRILS ONCE DAILY, # 48 mL, 0 Refills, [facility], [id number], 90, USE 1 SPRAY IN BOTH NOSTRILS ONCE DAILY, 185.42, cm, 03/19/21 10:56:00 EDT, Height, 113.3, kg, 03/19/21 10:56:00 EDT, Dry Weight Start Date: 05/04/21 Status: Ordered omeprazole 40 mg oral enteric coated capsule 1 capsule = 40 mg, By Mouth, 2 times a day, before a meal, # 60 capsule, 11 Refills, Maintenance, 04/17/20 10:13:00 EDT, EC Capsule, [facility]/pharmacy #[id number], 185.7, cm, 04/16/20 [...]
--- OUTSIDE RECORDS SUMMARY | 2024-09-04 02:57 | XMS_ITS | Continuity of Care Document ---
Author Organization [facility] Address [address] [place] [address]- Care Team Providers Care Freight Agent Name Role Phone Dione PERDOMO, Poli Lewis Primary Care Physician Encounter [facility] [place] [place] Date(s): 03/16/21 - 04/15/21 [facility] [address] [place] [address] Allergies, Adverse Reactions, Alerts Substance Reaction Severity [...] 04/17/20 10:13:00 EDT, EC Capsule, [facility]/pharmacy #[id number], 185.7, cm, 04/16/20 16:28:00 EDT, [...]
--- OUTSIDE RECORDS SUMMARY | 2024-09-04 02:57 | XMS_ITS | Continuity of Care Document ---
Author Organization [facility] Shad lt Address [address] [place] [address]- Care Team Providers Care Django Developer Name Role Phone Poli Parham MD Primary Care Physician En[place] [facility] [place] Date(s): 02/10/21 - 03/12/21 [facility] Adult [address] [place] [address]- Allergies, Adverse Reactions, Alerts Substance Reaction Severity [...] Refills, Maintenance, 07/03/20 10:56:00 EDT, REC Powder, [facility]/pharmacy #[id number], 240 mL By Mouth Every 10 minutes, 185.7, cm, 07/03/20 10:10:00 EDT, Height Start Date: 07/03/20 Status: Ordered omeprazole 40 mg oral enteric coated capsule 1 capsule = 40 mg, By Mouth, 2 times a day, before a meal, # 60 capsule, 11 Refills, Maintenance, 04/17/20 10:13:00 EDT, EC Capsule, [facility]/pharmacy #[id number], 185.7, cm, 04/16/20 16:28:00 EDT, Height [...]
--- OUTSIDE RECORDS SUMMARY | 2024-09-04 02:57 | XMS_ITS | Continuity of Care Document ---
Author Organization [facility] Kenneth Shad lt Address [address] [place] [address]- Care Team Providers Care Steam Conditioner Operator Name Role Phone Fadia Tay Primary Care Physician [place] [facility] [place] 03/07/24 - 03/14/24 [facility] Adult [address] [place] [address]- Encounter Diagnosis Wellness examination(Discharge Diagnosis) - 03/07/24 Attending Physician: Fadia Tay Allergies, Adverse Reactions, [...] Refills, Maintenance, 05/04/22 15:04:00 EDT, Pow[facility], [id number], Partial fill upon patient request if the prescription is for a schedule II opioid drug., 185.42, cm... Start Date: 05/04/22 Status: Ordered Flonase Allergy Relief 50 mcg/inh nasal spray 1 sprays = 50 mcg, Nares, Both, Daily, shake well before using, # 9.9 mL, 3 Refills, Maintenance, 03/07/24 10:14:00 EDT, [place], [id number], Partial fill upon patient request [...] Effective Dates Health Status Clinical Service Informant Wellness examination Discharge Diagnosis 03/07/24 Vital Signs Most recent to oldest [Reference Range]: 1 Height 185.42 cm (03/07/24 10:04 AM) Weight 115 kg (03/07/24 10:04 AM) Oxygen Saturation [94-100 %] 97 % (03/07/24 10:04 AM) Pulse Rate [55-90 bpm] 77 bpm (03/07/24 10:04 AM) Body Mass Index [18.5-24.99 kg/m2] 33.45 kg/m2 *>HHI* (03/07/24 10:04 AM) Blood Pressure [90-138/55-84 mm Hg] 136/ 81mm Hg (03/07/24 10:04 AM) Temperature [96.8-100.4 DegF] 98.7 DegF (03/07/24 10:04 AM) Mode of Delivery (Oxygen) Room air (03/07/24 10:04 AM) Blood pressure sites Arm, right (03/07/24 10:04 AM) Temperature Route Oral (03/07/24 10:04 AM) Weight Obtained Via Standing scale (03/07/24 10:04 AM) Dry Weight Obtained Via Standing scale (03/07/24 10:04 AM) Social History Social History Type Response Smoking Status Former smoker; Other : quit 8 years ago; entered on: 03/01/16 Sex Patient Care team information Care Team Personnel Name: Fadia Tay Position: [facility] PCO Associate Professional Member Role: PCP Address: Address: [address] [place] [address] Care Team Related Persons Name: ИРИНА OSBORNE Address: home [address] [address] Name: NIRU OSBORNE Address: home [address] [place] [address]
--- OUTSIDE RECORDS SUMMARY | 2024-09-04 02:57 | XMS_ITS | Continuity of Care Document ---
Author Organization [facility] Address [address] [place] [address]- Care Team Providers Care Supervisory Historian Name Role Phone Fadia Tay Primary Care Physician [phone] [place] [facility] [place] Date(s): 04/30/22 - 06/04/[address] [address]- Attending Physician: Teresita Jo NP Admitting Physician: Teresita Jo NP Referring Physician: Teresita Jo NP Allergies, Adverse Reactions, Alerts No Known [...] Route to Pharmacy Electronically, [facility]/pharmacy #[id number], Partial fill upon patient request if the [...] DAILY, # 48 mL, 0 Refills, Maintenance, [facility] [id number], 90, USE 1 SPRAY IN BOTH NOSTRILS [...]
--- OUTSIDE RECORDS SUMMARY | 2024-09-04 02:57 | XMS_ITS | Continuity of Care Document ---
Author Organization [facility] Kenneth Shad Address [address] [place] [address]- Care Team Providers Care Pure Culture Operator Name Role Phone Fadia Tay Primary Care Physician Encounter [facility] [place] Date(s): 07/12/24 - 08/11/24 [facility] [place] [address] [place] [address]- Allergies, Adverse Reactions, Alerts No Known Allergies Immunizations Given and Recorded Vaccine Date Status Refusal Reason SARS-CoV-2 (COVID-19) mRNA BNT-162b2 vac 11/11/21 Recorded SARS-CoV-2 (COVID-19) mRNA BNT-162b2 vac 12/03/20 Recorded SARS-CoV-2 (COVID-19) mRNA BNT-162b2 vac 11/12/20 Recorded influenza virus vaccine, inactivated 1 09/07/14 Gi shgaufta influenza virus vaccine, inactivated 2 12/03/13 Gi [...] Refills, Maintenance, 06/04/24 14:51:00 EDT, [id number], 90, SPRAY 1 SPRAY INTO BOTH NOSTRILS DAILY,SHAKE WELL BEFORE USING, 185.42, cm, 03/07/24 10:04... Start Date: 06/04/24 Status: Ordered [place] [employer] By Mouth, 2 times a day, [...] Associate Professional Member Role: PCP Address: Address: [address] [place] [address]- Care Team Related Persons Name: OSBORNEИРИНА Address: [address] [facility] [address] [place] [address] Name: NIRU OSBORNE Address: home [address] [place] [address]
--- OUTSIDE RECORDS SUMMARY | 2024-09-04 02:57 | XMS_ITS | Continuity of Care Document ---
Author Organization [facility] Shad lt Address [address] [place] [address]- Care Team Providers Care Software Engineer Developer Name Role Phone Dione PERDOMO, Poli Lewis Primary Care Physician [place] [facility] [place](s[place] 10/30/19 - 11/09/19 [facility] Adult [address] [place] [address]- [facility] Attending Physician: AdmPillo [email or web address] Admitting Physician: AdmMattie bay Referring Physician: AdmtrMattie Allergies, Adverse Reactions, Alerts [...] 0 Refills, Maintenance, 10/30/19 11:35:00 EST, Tablet, [facility]/pharmacy #[id number], 185.7, cm, 10/30/19 11:15:00 EST, Height [...]
--- OUTSIDE RECORDS SUMMARY | 2024-09-04 02:57 | XMS_ITS | Continuity of Care Document ---
Author Organization [facility] Shad lt Address [address] [place] [address]- Care Team Providers Care Supervisor [employer] Name Role Phone Poli Parham MD Primary Care Physician [phone] Encounter [facility] [place] Date(s): 06/17/20 - 07/23/20 [facility] Adult [address] [place] [address]- [facility] Attending Physician: Poli Parham MD Allergies, Adverse [...]
--- OUTSIDE RECORDS SUMMARY | 2024-09-04 02:57 | XMS_ITS | Continuity of Care Document ---
Author Organization [facility] Kenneth Shad lt Address [address] [place] [address]- Care Team Providers Care Food Demonstrator Name Role Phone Fadia Tay Primary Care Physician En[place] [facility] [place] [facility] [place] Date(s): 02/08/24 - 03/09/24 [facility] Adult [address] [place] [address]- Allergies, Adverse Reactions, Alerts No Known Allergies [...] Refills, Maintenance, 05/04/22 15:04:00 EDT, [facility], [id number], Partial fill upon patient request if the prescription is for a schedule II opioid drug., 185.42, cm... Start Date: 05/04/22 Status: Ordered Flonase Allergy Relief 50 mcg/inh nasal spray 1 sprays = 50 mcg, Nares, Both, Daily, shake well before using, # 9.9 mL, 3 Refills, Maintenance, 03/07/24 10:14:00 EDT, [place], [id number], Partial fill upon patient request [...] Care Team Personnel Name: Fadia Tay Position: [facility] PCO Associate Professional Member Role: PCP Address: Address: [address] [place] [address]- Care Team Related Persons Name: ИРИНА OSBORNE Address: home [address] [address] Name: NIRU OSBORNE Address: home [address] [place] [address]
--- OUTSIDE RECORDS SUMMARY | 2024-09-04 02:57 | XMS_ITS | Continuity of Care Document ---
Author Organization [facility] Shad lt Address [address] [place] [address]- Care Team Providers Care Exhibit Display Representative Name Role Phone Poli Parham MD Primary Care Physician Encounter [facility] [place] Date(s): 06/23/20 - 06/30/20 [facility] [place] Adult [address] [place] [address]- [facility] Encounter Diagnosis Esophageal reflux (GERD)(Discharge Diagnosis) - 06/23/20 Attending Physician: Poli Parham MD Allergies, Adverse [...] Both Daily Start Date: 03/09/18 Status: Ordered omeprazole 40 mg oral enteric [...] Service Informant Esophageal reflux (GERD) Discharge Diagnosis 06/23/20 Vital Signs Most recent to oldest [Reference Range]: 1 Height 185.7 cm (06/23/20 10:13 AM) Social History Social History Type Response Smoking Status Former smoker; Other : quit 8 years ago; entered on: 03/01/16 Sex
[2024-09-04 03:10] LABS: Appearance Urine Clear; Color Urine Yellow; Glucose Urine UA Negative (Negative); Leukocyte Esterase Urine Negative (Negative); Nitrite Urine Negative (Negative); PH 5.5 (5.0-9.0); Urine Blood Negative (Negative); Urine Ketones Negative (Negative); Urine Protein Negative (Neg-Trace)
--- NOTE | 2024-09-04 03:15 | PC.NURSE ---
Urine sample ordered, obtained and sent down to lab for results. Notified provider of pt reported 10/10 RLQ pain.
--- NOTE | 2024-09-04 03:37 | ED.ABDPAIN ---
HPI - Abdominal Pain General Chief Complaint: Abdominal Pain Stated Complaint: Abdominal Pain Time Seen by Provider: 09/04/24 03:32 Source: patient Mode of arrival: ambulatory Limitations: no limitations History of Present Illness ED Provider: Dr. Rosie Khan HPI narrative: Patient comes to the emergency room complaining of right lower quadrant pain. According to the patient, it has been almost 21 hours since the pain started. Patient states is in the periumbilical/right lower quadrant. Patient denies radiating pain. Patient denies nausea vomiting or diarrhea. Denies fever chills. Patient states that he was unable to eat dinner due to the pain. Related Data Previous Rx's ?Medication ?Instructions ?Recorded ibuprofen 600 mg tablet 600 mg PO Q6H PRN pain #30 tabs 02/19/22 ondansetron 4 mg disintegrating 4 mg PO Q8H PRN nausea and 02/19/22 tablet vomiting #20 tabs oxycodone-acetaminophen 5 mg-325 1 tab PO TID PRN pain #8 tabs 02/19/22 mg tablet Allergies Allergy/AdvReac Type Severity Reaction Status Date / Time ENVIRONMENTAL Allergy Unknown ITCHY EYES Uncoded 09/04/24 02:07 Review of Systems Review of Systems Constitutional : No Weight loss, No Fever, No Chills, No Night Sweats, No Fatigue, No Malaise ENT/Mouth : No Hearing loss, No Ear Pain, No Nasal Congestion, No Sinus Pain, No Hoarseness, No sore throat, No Rhinorrhea, No Swallowing Difficulty Eyes: No Eye Pain, No Swelling, No Redness, No Foreign Body, No Discharge, No Vision Changes Cardiovascular : No Chest Pain, No SOB, No Dyspnea on Exertion, No Orthopnea, No Edema, No Palpitations Respiratory : No Cough, No Sputum, No Wheezing, No Smoke Exposure, No Dyspnea Gastrointestinal : No Nausea, No Vomiting, No Diarrhea, No Constipation, complaining of constant right lower quadrant pain Genitourinary : no irregular bleeding, No Dysuria, No Urinary Frequency, No Hematuria, No Urinary Incontinence, No Urgency, No Flank Pain, No Urinary Flow Changes, No Hesitancy Musculoskeletal : No joint pain, No Myalgias, No Joint Swelling Skin : No Skin Lesions, No rash Neuro : No Weakness, No Numbness, No Paresthesias, No Loss of Consciousness, No Dizziness, No Headache Psych : No Anxiety/Panic, No Depression, No SI/HI/AH/VH, No Social Issues, Heme/Lymph: No Bruising, No Bleeding,No Lymphadenopathy Endocrine : No Polyuria, No Polydipsia, No Temperature Intolerance PMF Past Medical History Medical History No known health problems Social History Social History (Updated 02/19/22 @ 14:29 by Martha Rico DO) Patient Tobacco Use Status: Never used Tobacco Smoked in Last 30 Days: No Use of substances other than those prescribed or required for medical reasons: No Advance Directives: No Advance Directives Information Provided: Yes Physical Exam ED Vital Signs: Vital Signs - 24 hr 09/04/24 02:05 Temperature 97.8 F Pulse Rate 85 Respiratory Rate 16 Blood Pressure 161/97 H Pulse Oximetry 99 Oxygen Delivery Method Room Air BMI result Body Mass Index 32.1 Const Other: Appearance: Alert. Oriented X3. No acute distress. Eyes: Pupils equal, round and reactive to light. ENT: Pharynx normal. Neck: Normal inspection. Neck supple. No lymph nodes noted. No crepitus CVS: Normal heart rate and rhythm. Pulses normal. Normal S1 and S2 Respiratory: No respiratory distress. Breath sounds normal. No Wheezing. No rales Abdomen: Soft , tenderness to palpation in right lower quadrant, no rebound Skin: Skin warm and dry. Normal skin color. Normal skin turgor. Extremities: No lower extremity edema. No Lacerations. No Rash Neuro: Oriented X 3. No motor deficit. No sensory deficit. Moving all extremities. No slurred speech. CN 2 through 12 grossly intact Psych: calm, cooperative, normal affect Course Course Course Narrative: Patient receiving IV ketorolac, denies nausea Medical Decision Making Medical Decision Making MDM Narrative: My interpretation of labs, normal hematology chemistry LFTs lipase and urinalysis. -given the location of the pain and physical exam, we will go ahead with a CT scan to rule out acute appendicitis. -patient was given IV ketorolac, feeling better. -my interpretation of CT scan, acute appendicitis, no perforation -CT scan report: Appendix is 15 mm in diameter, no evidence of perforation do not 6 mm appendicolith is present at the base of the appendix -patient was given Zosyn. At this time, patient has no significant pain. -I discussed the patient with Dr. Syed from surgery, patient being admitted. Differential Diagnosis Differential Diagnoses: The differential diagnosis associated with the presentation includes (Appendicitis, ureterolithiasis) Admission/Observation Consideration of admission/observation: Escalation of care including admission/observation considered Consult Healthcare Provider Management of the patient was discussed with: Aircraft Life Support Fitter Lab Data MDM Lab Attestation statement: I reviewed the patient's lab results. 09/04/24 02:14 09/04/24 02:14 Labs: Lab Results 09/04/24 09/04/24 Range/Units 02:14 02:59 WBC 10.8 (4.8-10.8) X10*3/uL RBC 4.95 (4.60-5.80) X10*6/uL Hgb 15.1 (14.0-18.0) g/dl Hct 43.8 (42.0-52.0) % MCV 88.5 (80.0-98.0) fL MCH 30.5 (27.0-33.0) pg MCHC 34.5 (31.0-36.0) g/dl RDW 12.6 (11.0-16.0) % Plt Count 177 (160-400) X10*3/uL MPV 9.6 (9.4-12.4) fL Immature Gran % (Auto) 0.3 (0.0-0.4) % Neut % (Auto) 69.9 (45-73) % Lymph % (Auto) 17.8 L (20-40) % [place] % (Auto) 9.0 (2-11) % Eos % (Auto) 2.6 (0-4) % Baso % (Auto) 0.4 (0-2) % Lymph # (Auto) 1.9 (1.2-4.9) X10*3/uL [place] # (Auto) 1.0 (0.1-1.2) X10*3/uL Eos # (Auto) 0.3 (0.0-0.4) X10*3/uL Baso # (Auto) 0.0 (0.0-0.2) X10*3/uL Abs Immat Gran (auto) 0.03 (0.00-0.03) X10*3/uL Absolute Neuts (auto) 7.6 (2.0-8.3) x10*3/uL Absolute Nucleated RBC 0.000 (0.0-0.012) X10*3/uL Nucleated RBC % (auto) 0.0 (0.0-0.2) /100WBC Sodium 141 (135-145) mmol/L Potassium 3.9 (3.3-5.1) mmol/L Chloride 107 (96-108) mmol/L Carbon Dioxide 25 (22-29) mmol/L Anion Gap 13 (12-20) BUN 11 (9-16) mg/dL Creatinine 1.31 (0.5-1.4) mg/dL Estim Creat Clear Calc 89.3 Estimated GFR 58 Random Glucose 113 (60-115) mg/dL Calcium 9.4 (8.4-10.2) mg/dL Total Bilirubin 0.4 (0.0-1.0) mg/dL AST 34 (5-37) U/L ALT 38 (0-40) U/L Alkaline Phosphatase 56 (39-117) U/L Total Protein 7.5 (6.5-8.0) g/dL Albumin 4.4 (3.5-5.0) g/dL Lipase 18 (8-78) U/L Urine Color Yellow Urine Appearance Clear Urine pH 5.5 (5.0-9.0) Ur Specific [place] 1.020 (1.005-1.025) Urine Protein Negative (Neg-Trace) mg/dL Urine Glucose (UA) Negative (Negative) mg/dL Urine Ketones Negative (Negative) mg/dL Urine Blood Negative (Negative) Urine Nitrite Negative (Negative) Ur Leukocyte Esterase Negative (Negative) Independent Interpretation I performed an independent interpretation of an: CT Scan Radiology Impression Discussion of test interpretation with radiology: I have reviewed the radiologist's reading. Radiologist Impression: Acute uncomplicated appendicitis. The appendix is abnormally dilated to 15 mm in diameter. Moderate adjacent periappendiceal inflammatory changes are present. No evidence of appendiceal perforation. A 6 mm appendicolith is present at the base of the appendix. Normal appearance of the terminal ileum. This critical result was discussed with Rosie Khan MD by telephone at 09/04/2024 4:09 AM EDT and it was ascertained that the content and urgency of the report was understood at the time of direct communication. Medications Administered Discontinued Medications Generic Name Dose Route Start Last Admin Trade Name Freq PRN Reason Stop Dose Admin Iohexol 85 ml 10/29/24 03:50 09/04/24 03:51 Iohexol 350 Mg/Ml 100 Ml Infus..Btl IV 09/04/24 03:51 85 ml ONCE ONE Administration Ketorolac Tromethamine 30 mg 09/04/24 03:36 09/04/24 03:58 Ketorolac Tromethamine 30 Mg/Ml Vial IVPUSH 09/04/24 03:37 30 mg ONCE ONE Administration Ondansetron HCl 4 mg 09/04/24 03:56 09/04/24 03:58 Ondansetron Hcl 4 Mg/2 Ml Vial IVPUSH 09/04/24 03:57 4 mg ONCE ONE Administration Critical Care Time Critical Care Time Critical Care Time: Yes Total Critical Care Time: 60 Attestation: I have personally provided critical care time. Time includes review of lab data, radiology results, discussion with consultants, and monitoring for potential decompensation. Intervention performed as documented. Discharge Plan Discharge Clinical Impression: Acute appendicitis Patient Disposition: Admitted As Inpatient Prescriptions: No Action ibuprofen 600 mg tablet 600 mg PO Q6H PRN (Reason: pain) Qty: 30 0RF ondansetron 4 mg tablet,disintegrating 4 mg PO Q8H PRN (Reason: nausea and vomiting) Qty: 20 0RF oxycodone-acetaminophen 5-325 mg tablet 1 tab PO TID PRN (Reason: pain) Qty: 8 0RF Print Language: Indonesian
[2024-09-04] MEDS: iohexoL 350 MG/ML 100 ML INFUS..BTL 85 ML IV (03:51)
[2024-09-04] MEDS: Ketorolac Tromethamine 30 MG/ML VIAL IVPUSH (03:58)
[2024-09-04] MEDS: ondansetron HCL 4 MG/2 ML VIAL IVPUSH (03:58)
[2024-09-04] MEDS: Piperacillin Sodium/Tazobactam 3.375 GM in 0.9 % Sodium Chloride 50 ML IV ×3 (04:30→15:30)
--- NOTE | 2024-09-04 04:59 | PC.NURSE ---
PT medicated as per JAN. Provider declined ordering blood cultures.
--- NOTE | 2024-09-04 05:37 | MHC.EDTECH ---
Rounded and introduced self to patient,vitals taken belongings list completed,copy placed in chart. Patient ambulated to the bathroom with a steady gait,family at bedside call garrido in reach
[2024-09-04] MEDS: Morphine Sulfate 4 MG/ML CARTRIDGE IVPUSH ×2 (05:45→11:17)
--- NOTE | 2024-09-04 07:16 | PC.NURSE ---
Pt resting quietly. Skin PWD. NAD. denies pain at this time. Aware of plan for admission and NPO status. Last PO was 09/02 10pm
--- NOTE | 2024-09-04 07:55 | PHA.MEDREC ---
Pharmacy Consult ? Medication Reconciliation Pharmacy has completed the medication reconciliation. Patient stated he takes no medications at home
[2024-09-04] MEDS: Lactated Ringers 1,000 ML 100 ML IVCONT (07:57)
[2024-09-04] MEDS: Acetaminophen 1,000 MG/100 ML PIGGYBACK 400 MG IV (09:00)
--- NOTE | 2024-09-04 09:10 | P.HPGS_ITS ---
History of Present Illness History of Present Illness Date of Service: 09/04/24 Chief complaint: Abdominal Pain Narrative: Thien Mcclain is a 49 year old male , very healthy, who presents with a proximally 1 day history of initially nonspecific periumbilical pain which we located to the right lower quadrant. Because of persistence of symptoms, patient presents to the emergency department. Workup including CT scan demonstrated findings consistent with acute appendicitis. Patient denies any sick contacts. He has not had any unusual diet. He is on a recent foreign travel. No new meds. Chart was reviewed and patient evaluate PMFSH Past Medical History Medical History No known health problems Social History Social History (Updated 02/19/22 @ 14:29 by Martha Rico DO) Patient Tobacco Use Status: Never used Tobacco Smoked in Last 30 Days: No Use of substances other than those prescribed or required for medical reasons: No Advance Directives: No Advance Directives Information Provided: Yes Meds Allergies Allergy/AdvReac Type Severity Reaction Status Date / Time ENVIRONMENTAL Allergy Unknown ITCHY EYES Uncoded 09/04/24 02:07 Active Medications: Current Medications Lactated Ringer's (Lr) 1,000 mls @ 100 mls/hr IVCONT .Q10H [facility] Last Admin: 09/04/24 07:57 Dose: 100 mls/hr Piperacillin Sod/Tazobactam (Sod 3.375 gm/ Sodium Chloride) 50 mls @ 100 mls/hr IV Q6H [facility] Acetaminophen (Ofirmev) 1,000 mg in 100 mls @ 400 mls/hr IV Q6H PRN PRN Reason: Pain, Moderate(Pain Scale 4-6) Last Admin: 09/04/24 09:00 Dose: 400 mls/hr Ketorolac Tromethamine (Ketorolac Tromethamine 15 Mg/Ml Vial) 15 mg IVPUSH Q6H PRN PRN Reason: Pain, Mild (Pain Scale 1-3) Stop: 09/08/24 09:05 Morphine Sulfate (Morphine Sulfate 4 Mg/Ml Cartridge) 4 mg IVPUSH Q4H PRN; Protocol PRN Reason: Pain, Severe (Pain Scale 7-10) Home Medications ?Medication ?Instructions ?Recorded ?Confirmed ?Last Taken ?Type No Known Home Meds 09/04/24 09/04/24 Unknown History Physical Exam Vital Signs: Vital Signs: Last Vital Signs Temp 98.1 F 09/04/24 08:00 Pulse 81 09/04/24 08:00 Resp 16 09/04/24 08:00 BP 122/66 09/04/24 08:00 Pulse Ox 99 09/04/24 08:00 O2 Del Method Room Air 09/04/24 08:00 BMI result Body Mass Index 32.1 Chest: Other: Chest breath sounds bilaterally, HS 1 in 2 GI: Other: Mildly corpulent abdomen. Marked right lower quadrant localized rebound tenderness. Results Results Labs: Short CBC 09/04/24 Range/Units 02:14 WBC 10.8 (4.8-10.8) X10*3/uL Hgb 15.1 (14.0-18.0) g/dl Hct 43.8 (42.0-52.0) % Plt Count 177 (160-400) X10*3/uL BMP 09/04/24 02:14 Sodium 141 Potassium 3.9 Chloride 107 Carbon Dioxide 25 BUN 11 Creatinine 1.31 Calcium 9.4 Liver Function 09/04/24 Range/Units 02:14 Total Bilirubin 0.4 (0.0-1.0) mg/dL AST 34 (5-37) U/L ALT 38 (0-40) U/L Alkaline Phosphatase 56 (39-117) U/L Albumin 4.4 (3.5-5.0) g/dL Urine 09/04/24 Range/Units 02:59 Urine Color Yellow Urine Appearance Clear Urine pH 5.5 (5.0-9.0) Ur Specific [place] 1.020 (1.005-1.025) Urine Protein Negative (Neg-Trace) mg/dL Urine Glucose (UA) Negative (Negative) mg/dL Assessment and Plan (1) Acute appendicitis: Status: Acute Plan Risks, benefits, alternatives laparoscopic possible open appendectomy were reviewed with the patient which included but not limited to bleeding, infection, numbness, pain, scarring, bowel or bladder injury and the patient wished to proceed. All questions answered. Consent site. Patient is an add on for today with an operating room is available. Quality Stroke Does the patient have a stroke diagnosis?: No VTE Prior VTE?: No VTE Risk Level:: Surgical - low VTE Device Contraindication: N/A - Device Ordered VTE Drug Contraindication: Treatment Not Indicated Procedures Date of Service Date of Service: 09/04/24
--- NOTE | 2024-09-04 13:23 | PC.NURSE ---
Rn to RN with Short stay.
--- NOTE | 2024-09-04 14:14 | P.CONAN_ITS ---
HPI - Anesthesia Eval Consult details Narrative: 49 yo PMFSH Active Problems Active Problems: All Active Problems Acute appendicitis (Acute) Lumbar back sprain (Acute ~06/30/23) Past Medical History Medical History No known health problems Family History Family history of problems with anesthesia: No Surgical History Surgical History Hx of colonoscopy History of Problems with Anesthesia: No Social History Social History Are you a primary medicare interviewer to a significant other at home: No Do you presently have visiting nurse or other home services: No Patient Tobacco Use Status: Never used Tobacco Meds Allergies Allergy/AdvReac Type Severity Reaction Status Date / Time ENVIRONMENTAL Allergy Unknown ITCHY EYES Uncoded 09/04/24 14:13 Active Medications: Current Medications Lactated Ringer's (Lr) 1,000 mls @ 100 mls/hr IVCONT .Q10H [facility] Last Infusion: 09/04/24 11:15 Dose: 100 mls/hr Piperacillin Sod/Tazobactam (Sod 3.375 gm/ Sodium Chloride) 50 mls @ 100 mls/hr IV Q6H [facility] Last Infusion: 09/04/24 10:00 Dose: Infused Acetaminophen (Ofirmev) 1,000 mg in 100 mls @ 400 mls/hr IV Q6H PRN PRN Reason: Pain, Moderate(Pain Scale 4-6) Last Infusion: 09/04/24 09:30 Dose: Infused Ketorolac Tromethamine (Ketorolac Tromethamine 15 Mg/Ml Vial) 15 mg IVPUSH Q6H PRN PRN Reason: Pain, Mild (Pain Scale 1-3) Stop: 09/08/24 09:05 Morphine Sulfate (Morphine Sulfate 4 Mg/Ml Cartridge) 4 mg IVPUSH Q4H PRN; Protocol PRN Reason: Pain, Severe (Pain Scale 7-10) Last Admin: 09/04/24 11:17 Dose: 4 mg Exam Height,Weight and Vital Signs: Height 6 ft 2 in Weight 113.469 kg Last Vital Signs Temp 98.2 F 09/04/24 11:12 Pulse 87 09/04/24 11:12 Resp 18 09/04/24 11:12 BP 136/75 09/04/24 11:12 Pulse Ox 98 09/04/24 11:12 O2 Del Method Room Air 09/04/24 11:12 Pertinent Lab Results Pertinent Lab Results: Laboratory Tests 09/04/24 09/04/24 02:14 02:59 WBC 10.8 RBC 4.95 Hgb 15.1 Hct 43.8 MCV 88.5 MCH 30.5 MCHC 34.5 RDW 12.6 Plt Count 177 MPV 9.6 Immature Gran % (Auto) 0.3 Neut % (Auto) 69.9 Lymph % (Auto) 17.8 L Long % (Auto) 9.0 Eos % (Auto) 2.6 Baso % (Auto) 0.4 Lymph # (Auto) 1.9 Long # (Auto) 1.0 Eos # (Auto) 0.3 Baso # (Auto) 0.0 Abs Immat Gran (auto) 0.03 Absolute Neuts (auto) 7.6 Absolute Nucleated RBC 0.000 Nucleated RBC % (auto) 0.0 Sodium 141 Potassium 3.9 Chloride 107 Carbon Dioxide 25 Anion Gap 13 BUN 11 Creatinine 1.31 Estim Creat Clear Calc 89.3 Estimated GFR 58 Random Glucose 113 Calcium 9.4 Total Bilirubin 0.4 AST 34 ALT 38 Alkaline Phosphatase 56 Total Protein 7.5 Albumin 4.4 Lipase 18 Urine Color Yellow Urine Appearance Clear Urine pH 5.5 Ur Specific [place] 1.020 Urine Protein Negative Urine Glucose (UA) Negative Urine Ketones Negative Urine Blood Negative Urine Nitrite Negative Ur Leukocyte Esterase Negative Airway Mallampati Class: IV (Minimal mouth opening. Patient states this is as much as he can open) TM Dist: >3cm Neck ROM: Full Loose/Missing/Broken Teeth: No Heart: RRR Lungs: CTAB Assessment and Plan Assessment Anesthesia Assessment: Anesthesia Plan Discussed and Chart Reviewed Final Anesthetic Review Family History of Problems with Anesthesia: No History of Problems with Anesthesia: No NPO: Yes ASA Class: II and Emergency Final Preanesthetic Review: No Changes in Pt Med Stat, Meds/Allgs Chart Reviewed, Consent Obtained/Reviewed and Anes Risks/Benef Reviewed Patient Risk: Low Procedure Risk: Low Assessment/Block/Sedation in SS: Assess/Block/Sedation-SS Anesthetic Plan Anesthetic Plan: GA Disposition: Standard PACU
--- NOTE | 2024-09-04 14:15 | P.CONAN_ITS ---
HPI - Anesthesia Eval Consult details Narrative: kota ANN Active Problems Active Problems: All Active Problems Acute appendicitis (Acute) Lumbar back sprain (Acute ~06/30/23) Past Medical History Medical History No known health problems Family History Family history of problems with anesthesia: No Surgical History Surgical History Hx of colonoscopy History of Problems with Anesthesia: No Social History Social History Patient Tobacco Use Status: Never used Tobacco Smoked in Last 30 Days: No Use of substances other than those prescribed or required for medical reasons: No Advance Directives: No Advance Directives Information Provided: Yes Meds Allergies Allergy/AdvReac Type Severity Reaction Status Date / Time ENVIRONMENTAL Allergy Unknown ITCHY EYES Uncoded 09/04/24 14:13 Active Medications: Current Medications Lactated Ringer's (Lr) 1,000 mls @ 100 mls/hr IVCONT .Q10H [facility] Last Infusion: 09/04/24 11:15 Dose: 100 mls/hr Piperacillin Sod/Tazobactam (Sod 3.375 gm/ Sodium Chloride) 50 mls @ 100 mls/hr IV Q6H [facility] Last Infusion: 09/04/24 10:00 Dose: Infused Acetaminophen (Ofirmev) 1,000 mg in 100 mls @ 400 mls/hr IV Q6H PRN PRN Reason: Pain, Moderate(Pain Scale 4-6) Last Infusion: 09/04/24 09:30 Dose: Infused Ketorolac Tromethamine (Ketorolac Tromethamine 15 Mg/Ml Vial) 15 mg IVPUSH Q6H PRN PRN Reason: Pain, Mild (Pain Scale 1-3) Stop: 09/08/24 09:05 Morphine Sulfate (Morphine Sulfate 4 Mg/Ml Cartridge) 4 mg IVPUSH Q4H PRN; Protocol PRN Reason: Pain, Severe (Pain Scale 7-10) Last Admin: 09/04/24 11:17 Dose: 4 mg Home Medications ?Medication ?Instructions ?Recorded ?Confirmed ?Last Taken ?Type No Known Home Meds 09/04/24 09/04/24 Unknown History Exam Height,Weight and Vital Signs: Height 6 ft 2 in Weight 113.469 kg Last Vital Signs Temp 98.2 F 09/04/24 11:12 Pulse 87 09/04/24 11:12 Resp 18 09/04/24 11:12 BP 136/75 09/04/24 11:12 Pulse Ox 98 09/04/24 11:12 O2 Del Method Room Air 09/04/24 11:12 Pertinent Lab Results Pertinent Lab Results: Laboratory Tests 09/04/24 09/04/24 02:14 02:59 WBC 10.8 RBC 4.95 Hgb 15.1 Hct 43.8 MCV 88.5 MCH 30.5 MCHC 34.5 RDW 12.6 Plt Count 177 MPV 9.6 Immature Gran % (Auto) 0.3 Neut % (Auto) 69.9 Lymph % (Auto) 17.8 L [place] % (Auto) 9.0 Eos % (Auto) 2.6 Baso % (Auto) 0.4 Lymph # (Auto) 1.9 [place] # (Auto) 1.0 Eos # (Auto) 0.3 Baso # (Auto) 0.0 Abs Immat Gran (auto) 0.03 Absolute Neuts (auto) 7.6 Absolute Nucleated RBC 0.000 Nucleated RBC % (auto) 0.0 Sodium 141 Potassium 3.9 Chloride 107 Carbon Dioxide 25 Anion Gap 13 BUN 11 Creatinine 1.31 Estim Creat Clear Calc 89.3 Estimated GFR 58 Random Glucose 113 Calcium 9.4 Total Bilirubin 0.4 AST 34 ALT 38 Alkaline Phosphatase 56 Total Protein 7.5 Albumin 4.4 Lipase 18 Urine Color Yellow Urine Appearance Clear Urine pH 5.5 Ur Specific [place] 1.020 Urine Protein Negative Urine Glucose (UA) Negative Urine Ketones Negative Urine Blood Negative Urine Nitrite Negative Ur Leukocyte Esterase Negative Airway Mallampati Class: III TM Dist: <=3cm Neck ROM: Full Heart: rrr Lungs: cta Assessment and Plan Assessment Anesthesia Assessment: Anesthesia Plan Discussed Final Anesthetic Review Family History of Problems with Anesthesia: No History of Problems with Anesthesia: No NPO: Yes ASA Class: II Final Preanesthetic Review: No Changes in Pt Med Stat, Meds/Allgs Chart Reviewed, Consent Obtained/Reviewed and Anes Risks/Benef Reviewed Patient Risk: Low Procedure Risk: Low Anesthetic Plan Anesthetic Plan: GA Disposition: Standard PACU
--- NOTE | 2024-09-04 14:27 | PC.NURSE ---
Left AC IV from ER.
--- NOTE | 2024-09-04 14:41 | PC.NURSE ---
Kylee Howell OR forming machine operator and registration working on account due to account reflecting that patient was discharged but has only gone into the OR.
--- NOTE | 2024-09-04 15:18 | P.OP_ITS ---
Operative Note Operative Note Date of Service: 09/04/24 Narrative: Preoperative diagnosis: [] Acute appendicitis Postop diagnosis: [] The same Procedure [] laparoscopic appendectomy Surgeon: [] Kunal Door To Door Sales Representative: [] David Type of Anesthesia: [] General Indication for surgery: [] Edematous inflamed appendix. No gross evidence of perforation Findings: [] Patient will brought to the operating room, placed on operative table in the supine position, after an adequate level of general anesthesia was induced, the patient's abdomen was prepped and draped in usual sterile fashion. Using a supraumbilical curvilinear incision, Lai technique was used to insufflate abdominal cavity to 15 mm of CO2. Lower midline and suprapubic ports were placed under direct laparoscopic view, and the patient placed in Trendelenburg position, and tilted to the left. Findings were as noted above. Appendix was grasped and brought onto the field. It's mesentery was sequentially taken down using double firing of ligature device. Appendix was then transected at the cecal base using an endoscopic MICHELLE stapler. Specimen was placed in an Endo-Catch bag, and retrieved through the umbilical port. Abdominal cavity was very copiously irrigated and secured hemostasis. All ports removed under direct laparoscopic view. Wounds were closed in the following manner; umbilical wound has it's fascia reapproximated using interrupted 0 Vicryl sutures. Skin wounds were closed using subcuticular 4-0 Vicryl sutures followed by Steri-Strips and sterile dressings. Wounds were infiltrated 0.5% Marcaine at completion. Sponge, needle, and instrument counts reported correct. Patient tolerated the procedure well and emerged from anesthesia stable condition. EBL minimal
[2024-09-04] MEDS: Ondansetron ODT 4 MG TAB.RAPDIS TRANSLINGU (16:19)
== END 2024-09-04 16:25 | disposition home or self-care (01) ==
LOC: HO.ED 13:48 → HO.SSS 14:10
PROVIDERS: Emergency Provider Emergency Medicine; PCP Hospitalist; Visit Provider Surgery
PROC: 0DTJ4ZZ Resection of Appendix, Percutaneous Endoscopic Approach (ICD-10-PCS; CPT 44970; principal; 2024-09-04 14:40)
DX: K35.80 Unspecified acute appendicitis (principal); R10.31 Right lower quadrant pain
CPT/HCPCS: 44970; 36415; 74177; 80053; 81003; 83690; 85025; 88304; 96374; 96375; 99285; J0131; J1171; J1885; J2003; J2270; J2405; J2543; J2704; J2795; J3010; J7120; Q9967

== ENCOUNTER → 2024-09-04 02:51 | Outpatient (BNV) | payer OTHER, SELFPAY | PROVIDERS: Emergency Provider Emergency Medicine; PCP Hospitalist; Visit Provider Surgery | DX: K35.80 Unspecified acute appendicitis (principal) | CPT/HCPCS: 44970; 99285 ==

== ENCOUNTER 2024-09-11 09:11 | Outpatient (AMB) | payer OTHER, SELFPAY ==
--- NOTE | 2024-09-11 09:15 | A.OFFVIS_ITS ---
Intake Visit Reasons: S/p lap appy Intake Note: This patient presents for post-op assessment status post laparoscopic appendectomy. Pt c/o; reports no complaints. Writing Manager Required: No Accompanied by: Self / Same As Patient Allergies ENVIRONMENTAL Allergy (Unknown, Uncoded 09/11/24 09:24) ITCHY EYES HPI Comments Details: Patient presents with his significant other. Status post laparoscopic appendectomy. He is doing well. Starting a diet. Having regular bowel habits. He is increasing his activity level. He has minimal incisional discomfort. Pathology reviewed [facility] Medical History Acute appendicitis No known health problems Surgical History History of laparoscopic appendectomy (09/04/24) Hx of colonoscopy Social History Are you a primary foster care worker to a significant other at home: No Do you presently have visiting nurse or other home services: No Patient Tobacco Use Status: Never used Tobacco Physical Exam GI Other: Abdomen is soft. Incisions all clean dry and intact healing well Assessment & Plan Assessment & Plan (1) Status post laparoscopic appendectomy: Code(s): Z90.49 - Acquired absence of other specified parts of digestive tract Category: Medical Plan Patient was been given local instructions, no to start work in 2 weeks with 2 weeks light duty and will otherwise follow-up p.r.n.. All questions answered. Coding Level of Care Code Global (50680) Diagnoses Status post laparoscopic appendectomy Z90.49
== END 2024-09-11 09:31 | disposition home or self-care (01) ==
LOC: HO.HGS 09:12
PROVIDERS: PCP Hospitalist; Visit Provider Surgery
DX: Z90.49 Acquired absence of other specified parts of digestive tract (principal)
CPT/HCPCS: 99024

== ENCOUNTER → 2025-07-25 08:18 | Outpatient (BNVA) | payer OTHER, SELFPAY | PROVIDERS: PCP Hospitalist; Visit Provider Emergency Medicine | DX: S16.1XXA Strain of muscle, fascia and tendon at neck level, initial encounter (principal); W50.0XXA Accidental hit or strike by another person, initial encounter; X50.3XXA Overexertion from repetitive movements, initial encounter | CPT/HCPCS: 72040; 72125; 99204 ==

== ENCOUNTER → 2025-08-01 09:00 | Outpatient (BNVA) | payer OTHER, SELFPAY | PROVIDERS: PCP Hospitalist; Visit Provider Emergency Medicine | DX: S16.1XXA Strain of muscle, fascia and tendon at neck level, initial encounter (principal); W50.0XXA Accidental hit or strike by another person, initial encounter | CPT/HCPCS: 99214 ==

== ENCOUNTER → 2025-08-15 08:58 | Outpatient (BNVA) | payer OTHER, SELFPAY | PROVIDERS: PCP Hospitalist; Visit Provider Emergency Medicine | DX: S16.1XXD Strain of muscle, fascia and tendon at neck level, subsequent encounter (principal); W50.0XXD Accidental hit or strike by another person, subsequent encounter; M48.02 Spinal stenosis, cervical region | CPT/HCPCS: 99213 ==